=== PATIENT | male | born 1950 | race Caucasian/White ===

== ENCOUNTER 2020-11-06 10:16 | Outpatient (REF) | payer MEDICARE, SELFPAY ==
[2020-11-06 10:20] LABS: MANUAL DIFF FLAG NO
[2020-11-06 10:44] LABS: Basophils Absolute Auto 0.1 X10*3/uL (0.0-0.2); Eosinophils Absolute Auto 0.2 X10*3/uL (0.0-0.4); Eosinophils Percent Auto 2.2 % (0-4); Hematocrit 45.2 % (42-52); Imm Gran Abs Auto 0.04 X10*3/uL (0.00-0.03); Imm Gran Pct Auto 0.4 % (0.0-0.4); Lymphocytes Absolute Auto 2.3 X10*3/uL (1.2-4.9); Lymphocytes Percent Auto 21.6 % (20-40); Mean Corpuscular HGB Conc 33.2 g/dl (31.0-36.0); Mean Corpuscular Hemoglobin 30.4 pg (27.0-33.0); Mean Corpuscular Volume 91.7 fL (80-98); Mean Platelet Volume 10.8 fL (9.4-12.4); Monocytes Absolute Auto 0.7 X10*3/uL (0.1-1.2); Neutrophils Absolute Auto 7.1 X10*3/uL (2.0-8.3); Neutrophils Percent Auto 67.8 % (45-73); Platelet Count 261 X10*3/uL (160-400); Red Blood Count 4.93 X10*6/uL (4.60-5.80); Red Cell Distribution Width 13.8 % (11.0-16.0); White Blood Count 10.4 X10*3/uL (4.8-10.8)
[2020-11-06 11:03] LABS: Estimated Average Glucose 171 mg/dL; Hemoglobin A1c % 7.6 %
[2020-11-06 11:14] LABS: Alanine Aminotransferase 15 U/L (0-40); Albumin Level 4.5 g/dL (3.5-5.0); Alkaline Phosphatase 70 U/L (39-117); Anion Gap 15 (12-20); Aspartate Amino Transferase 14 U/L (5-37); Bilirubin Total 0.7 mg/dL (0.0-1.0); Blood Urea Nitrogen 14 mg/dL (9-16); Calcium 9.7 mg/dL (8.4-10.2); Carbon Dioxide 27 mmol/L (22-29); Chloride 105 mmol/L (96-108); Cholesterol 133 mg/dL; Estimated Glomerular Filt Rate > 60; Glucose Fasting 205 mg/dL (60-99); HDL Cholesterol 31 mg/dL; LDL Cholesterol Calculated 76 mg/dl; Potassium 4.5 mmol/L (3.3-5.1); Sodium 142 mmol/L (135-145); Total Protein 6.9 g/dL (6.5-8.0); Triglycerides 134 mg/dL
[2020-11-06 11:19] LABS: Glucose Urine UA NEG (NEG); Leukocyte Esterase Urine NEG (NEG); Nitrite Urine NEG (NEG); PH 5.5 (5.0-8.0); Specific Gravity - Urine >= 1.030 (1.005-1.025); Urine Blood NEG (NEG); Urine Ketones NEG (NEG); Urine Protein NEG (NEG-TRACE)
[2020-11-06 11:21] LABS: Appearance Urine CLEAR; Color Urine YELLOW
[2020-11-06 11:30] LABS: Reflex LDLD? No
[2020-11-06 11:36] LABS: PSA,Total (Free>4and<10) 0.78 ng/mL (0.00-4.00)
== END 2020-11-06 10:17 | disposition home or self-care (01) ==
LOC: HO.LNP 10:16
PROVIDERS: Visit Provider Internal Medicine
DX: Z00.00 Encounter for general adult medical examination without abnormal findings (principal); Z12.5 Encounter for screening for malignant neoplasm of prostate; E11.9 Type 2 diabetes mellitus without complications; E78.00 Pure hypercholesterolemia, unspecified
CPT/HCPCS: 80053; 80061; 81003; 82043; 83036; 84153; 85025

== ENCOUNTER 2021-05-09 10:22 | Outpatient (REF) | payer MEDICARE, SELFPAY ==
[2021-05-09 11:08] LABS: Estimated Average Glucose 163 mg/dL; Hemoglobin A1c % 7.3 %
[2021-05-09 11:10] LABS: Alanine Aminotransferase 22 U/L (0-40); Albumin Level 4.4 g/dL (3.5-5.0); Alkaline Phosphatase 69 U/L (39-117); Aspartate Amino Transferase 15 U/L (5-37); Bilirubin Direct 0.2 mg/dL (0.0-0.5); Bilirubin Total 0.5 mg/dL (0.0-1.0); Cholesterol 134 mg/dL; Glucose Fasting 177 mg/dL (60-99); HDL Cholesterol 30 mg/dL; LDL Cholesterol Calculated 80 mg/dl; Total Protein 6.8 g/dL (6.5-8.0); Triglycerides 120 mg/dL
[2021-05-09 12:58] LABS: Reflex LDLD? No
== END 2021-05-09 10:23 | disposition home or self-care (01) ==
LOC: HO.LNP 10:22
PROVIDERS: Visit Provider Internal Medicine
DX: E11.9 Type 2 diabetes mellitus without complications (principal); E78.00 Pure hypercholesterolemia, unspecified
CPT/HCPCS: 80061; 80076; 82947; 83036

== ENCOUNTER 2021-11-12 11:31 | Outpatient (REF) | payer MEDICARE, SELFPAY ==
[2021-11-12 11:36] LABS: MANUAL DIFF FLAG NO
[2021-11-12 12:12] LABS: Basophils Absolute Auto 0.1 X10*3/uL (0.0-0.2); Eosinophils Absolute Auto 0.2 X10*3/uL (0.0-0.4); Eosinophils Percent Auto 2.4 % (0-4); Hematocrit 44.7 % (42.0-52.0); Hemoglobin 14.9 g/dl (14.0-18.0); Imm Gran Abs Auto 0.04 X10*3/uL (0.00-0.03); Imm Gran Pct Auto 0.5 % (0.0-0.4); Lymphocytes Absolute Auto 1.7 X10*3/uL (1.2-4.9); Lymphocytes Percent Auto 19.3 % (20-40); Mean Corpuscular HGB Conc 33.3 g/dl (31.0-36.0); Mean Corpuscular Hemoglobin 30.2 pg (27.0-33.0); Mean Corpuscular Volume 90.5 fL (80.0-98.0); Mean Platelet Volume 11.2 fL (9.4-12.4); Monocytes Absolute Auto 0.5 X10*3/uL (0.1-1.2); Monocytes Percent Auto 6.1 % (2-11); Neutrophils Absolute Auto 6.2 x10*3/uL (2.0-8.3); Neutrophils Percent Auto 70.7 % (45-73); Platelet Count 273 X10*3/uL (160-400); Red Blood Count 4.94 X10*6/uL (4.60-5.80); Red Cell Distribution Width 13.6 % (11.0-16.0); White Blood Count 8.7 X10*3/uL (4.8-10.8)
[2021-11-12 12:17] LABS: Estimated Average Glucose 148 mg/dL; Hemoglobin A1c % 6.8 %
[2021-11-12 12:19] LABS: Alanine Aminotransferase 13 U/L (0-40); Albumin Level 4.5 g/dL (3.5-5.0); Alkaline Phosphatase 62 U/L (39-117); Anion Gap 15 (12-20); Aspartate Amino Transferase 16 U/L (5-37); Bilirubin Total 0.5 mg/dL (0.0-1.0); Blood Urea Nitrogen 11 mg/dL (9-16); Calcium 9.5 mg/dL (8.4-10.2); Carbon Dioxide 26 mmol/L (22-29); Chloride 104 mmol/L (96-108); Cholesterol 123 mg/dL; Estimated Glomerular Filt Rate > 60; Glucose Fasting 156 mg/dL (60-99); HDL Cholesterol 26 mg/dL; LDL Cholesterol Calculated 58 mg/dl; Sodium 140 mmol/L (135-145); Total Protein 6.7 g/dL (6.5-8.0); Triglycerides 198 mg/dL
[2021-11-12 12:20] LABS: Appearance Urine CLEAR; Color Urine YELLOW; Glucose Urine UA NEG (NEG); Leukocyte Esterase Urine NEG (NEG); Nitrite Urine NEG (NEG); PH 5.5 (5.0-8.0); Specific Gravity - Urine >= 1.030 (1.005-1.025); Urine Blood 3+ (NEG); Urine Ketones 15 MG/DL (NEG); Urine Protein TRACE MG/DL (NEG-TRACE)
[2021-11-12 12:33] LABS: Creatinine Urine 202.49 mg/dL; Microalbum/Creatinine Ratio Ur 61.2 ug/mg cr
[2021-11-12 12:41] LABS: PSA,Total (Free>4and<10) 0.69 ng/mL (0.00-4.00)
[2021-11-12 13:03] LABS: Squamous Epithelial Cell Urine 1+ /LPF
[2021-11-12 13:04] LABS: Mucus Urine TRACE /LPF; RBC Urine 50-75 /HPF (0)
== END 2021-11-12 11:32 | disposition home or self-care (01) ==
LOC: HO.LNP 11:31
PROVIDERS: Visit Provider Internal Medicine
DX: Z00.00 Encounter for general adult medical examination without abnormal findings (principal); E11.9 Type 2 diabetes mellitus without complications; R79.89 Other specified abnormal findings of blood chemistry; E78.00 Pure hypercholesterolemia, unspecified; Z12.5 Encounter for screening for malignant neoplasm of prostate
CPT/HCPCS: 80053; 80061; 81001; 82043; 83036; 84153; 85025

== ENCOUNTER 2023-02-24 10:59 | Outpatient (REF) | payer MEDICARE, SELFPAY ==
[2023-02-24 11:04] LABS: MANUAL DIFF FLAG NO
[2023-02-24 11:17] LABS: Appearance Urine Clear; Color Urine Yellow; Glucose Urine UA Negative (Negative); Leukocyte Esterase Urine Negative (Negative); Nitrite Urine Negative (Negative); UMIC TRIGGER UACC YES; Urine Blood Moderate (2+) (Negative); Urine Ketones Negative (Negative); Urine Protein 30 (1+) mg/dL (Neg-Trace)
[2023-02-24 11:18] LABS: Basophils Absolute Auto 0.1 X10*3/uL (0.0-0.2); Basophils Percent Auto 1.1 % (0-2); Eosinophils Absolute Auto 0.3 X10*3/uL (0.0-0.4); Eosinophils Percent Auto 2.7 % (0-4); Hematocrit 43.3 % (42.0-52.0); Hemoglobin 14.2 g/dl (14.0-18.0); Imm Gran Abs Auto 0.03 X10*3/uL (0.00-0.03); Imm Gran Pct Auto 0.3 % (0.0-0.4); Lymphocytes Percent Auto 19.7 % (20-40); Mean Corpuscular HGB Conc 32.8 g/dl (31.0-36.0); Mean Corpuscular Volume 88.5 fL (80.0-98.0); Mean Platelet Volume 11.3 fL (9.4-12.4); Monocytes Absolute Auto 0.7 X10*3/uL (0.1-1.2); Monocytes Percent Auto 6.3 % (2-11); Neutrophils Absolute Auto 7.2 x10*3/uL (2.0-8.3); Neutrophils Percent Auto 69.9 % (45-73); Platelet Count 241 X10*3/uL (160-400); Red Blood Count 4.89 X10*6/uL (4.60-5.80); Red Cell Distribution Width 13.8 % (11.0-16.0); White Blood Count 10.3 X10*3/uL (4.8-10.8)
[2023-02-24 11:24] LABS: Bacteria Urine None Seen (None Seen); RBC Urine >20 /HPF (0-2); UACC Culture Trigger YES
[2023-02-24 11:26] LABS: Estimated Average Glucose 143 mg/dL; Hemoglobin A1C 151.7007 umol/L; Hemoglobin A1c % 6.6 % (<6.0)
[2023-02-24 11:33] LABS: Alanine Aminotransferase 13 U/L (0-40); Albumin Level 4.5 g/dL (3.5-5.0); Alkaline Phosphatase 68 U/L (39-117); Anion Gap 15 (12-20); Aspartate Amino Transferase 15 U/L (5-37); Bilirubin Total 0.5 mg/dL (0.0-1.0); Blood Urea Nitrogen 11 mg/dL (9-16); Calcium 9.8 mg/dL (8.4-10.2); Carbon Dioxide 25 mmol/L (22-29); Chloride 107 mmol/L (96-108); Cholesterol 152 mg/dL (<200); Estimated Glomerular Filt Rate > 60; Glucose Fasting 160 mg/dL (60-99); HDL Cholesterol 31 mg/dL (>40); LDL Cholesterol Calculated 88 mg/dL (<100); Sodium 143 mmol/L (135-145); Triglycerides 168 mg/dL (<150)
[2023-02-24 12:43] LABS: Creatinine Urine 68.62 mg/dL; Microalbum/Creatinine Ratio Ur 224.4 ug/mg cr (<30)
== END 2023-02-24 11:00 | disposition home or self-care (01) ==
LOC: HO.LNP 10:59
PROVIDERS: Visit Provider Internal Medicine
DX: Z00.00 Encounter for general adult medical examination without abnormal findings (principal); E11.9 Type 2 diabetes mellitus without complications; R79.89 Other specified abnormal findings of blood chemistry; E78.00 Pure hypercholesterolemia, unspecified; R82.90 Unspecified abnormal findings in urine; Z12.5 Encounter for screening for malignant neoplasm of prostate
CPT/HCPCS: 80053; 80061; 81001; 82043; 82570; 83036; 84153; 85025; 87086

== ENCOUNTER 2023-05-28 12:02 | Inpatient (IN) | payer MEDICARE, SELFPAY ==
[2023-05-28] VITALS (7 sets, daily range): BP systolic 109–150; BP diastolic 62–76; PULSE 70–93; RESP 14–16; TEMP 36.7–37.6; O2SAT 97–99; BMI 27.0
--- NOTE | ~2023-05-28 | US_ITS ---
EXAMINATION: US RETROPERITONEAL LIMITED (RENAL ONLY) CLINICAL INFORMATION: Acute kidney injury. COMPARISON: CT dated 11/18/2018 TECHNIQUE: Real-time ultrasound was used to scan the bilateral kidneys and bladder. Permanent documented images obtained FINDINGS: RIGHT KIDNEY: 13.6 x 5.4 x 5.8 cm (SAG x AP x TRV) for a volume of 222.8 mL. Renal cortical thickness is normal. No calculi. 1.6 x 1.8 x 1.5 cm right lower pole cyst is seen. There is right hydronephrosis with complex appearing material within the intrarenal collecting system. Proximal right ureter at the level of the mid pole is enlarged, complex and thickened appearing measuring 4.1 x 4.2 x 4 cm. There is no internal vascularity. More distal right ureter is not documented. LEFT KIDNEY: 10.5 x 5.8 x 5.6 cm (SAG x AP x TRV) for a volume of 175.4 mm. The kidney is normal in size, shape and contour. Renal cortical thickness is normal. No renal calculi or focal parenchymal lesions. BLADDER: Limited evaluation. Urinary bladder is moderately distended with bilateral ureteral jets noted. OTHER: Prostate is enlarged and heterogeneous measuring 65 mL in volume. Prostate causes indentation on the inferior aspect of the urinary bladder. US/US renal BI IMPRESSION: Comparatively enlarged right kidney with complex appearing right hydronephrosis and proximal hydroureter. It is unclear whether complex material is related to blood products, infected material/pus or combination thereof. Proximal right ureteral mass not entirely excluded. Urgent CT urogram recommended. At the time of this dictation, PSA service contacted to inform referring physician of findings and recommendations.
--- NOTE | ~2023-05-28 | CT_ITS ---
EXAMINATION: CT HEAD W/O IV CONTRAST CT CERVICAL SPINE W/O IV CONTRAST CLINICAL INFORMATION: Pain after fall COMPARISON: None TECHNIQUE: Head - Contiguous axial imaging of the head was performed from the skull base to the vertex without the administration of intravenous contrast, and axial images are reconstructed at 0.6 mm, 2 mm and 5 mm slice thickness. Cervical spine - A volumetric, helical CT acquisition of the cervical spine was obtained without contrast; in addition to the standard set of axial images, multiplanar reformatted images were provided in the coronal and sagittal imaging planes. This CT examination was performed using dose optimization techniques as appropriate, variously including the following: *Automated exposure control *Adjustment of mA and/or kV according to patient size (this includes techniques or standardized protocols for targeted exams where dose is matched to indication/reason for exam; i.e. extremities or head) *Use of iterative reconstruction technique DLP: 1381 mGy-cm (total) FINDINGS: HEAD: No acute intracranial findings. Quiles to white matter differentiation is preserved. No evidence of intracranial hemorrhage, major vascular territory infarction, focal mass effect or midline shift. Chronic frbv-vy-zcqtmxkf parenchymal volume loss with commensurate prominence of ventricles and sulci. No hydrocephalus or extra-axial fluid collections. Atherosclerotic calcification of vertebral and cavernous carotid arteries. Patchy hypoattenuation within the supratentorial white matter is compatible with sequela of chronic moderate microangiopathy. Old small lacunar infarct in left basal ganglia. There is symmetric appearance of calcification of each globus pallidus. The calvarium is intact. Mild amount mucus of the inferior left maxillary sinus. Otherwise, the paranasal sinuses, mastoid air cells and middle ear cavities are clear. The temporomandibular joints are intact. The orbits and globes are unremarkable. CERVICAL SPINE: The craniocervical junction is normal. The occipital condyles, dens and atlantodental articulation are intact. The vertebral body heights are maintained. No fractures in the anterior or posterior elements. No prevertebral soft tissue edema or soft tissue hematoma. Multilevel facet arthropathy is present, worst on the right at C5-C6 and bilaterally at C7-T1. There is right-sided facet joint ankylosis at C2-C3. The degenerative disc space narrowing in the cervical spine is moderate in degree at C3-C4 and severe at C6-C7. Posterior disc-osteophyte complex at C6-C7 causes ulkm-fc-wttwipkq spinal canal stenosis. There is 0.2 cm of degenerative anterolisthesis at C5-C6 and C7-T1. No evidence of traumatic subluxation within the degenerated spine. The uncovertebral joint hypertrophy causes mild right and moderate left neural foraminal stenosis at C3-C4 and moderate bilateral foraminal stenosis at C6-C7. A small central disc protrusion is present at C4-C5. An old focus of nuchal ossification is noted at C6. Thyroid gland is unremarkable. There appear to be subpleural opacities of chronic scarring at the incompletely visualized lung apices. Also, centrilobular and paraseptal emphysematous changes are present at the apices. No pneumothorax. There is moderate atherosclerotic calcification of carotid bulbs. CT/CT cervical spine wo IV con IMPRESSION: * No intracranial hemorrhage or other acute intracranial pathology. 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 * No fracture or traumatic subluxation in the degenerated cervical spine. The degenerative disc disease is severe at C6-C7 and the posterior disc-osteophyte complex at this level causes hipi-ae-hyuujrlg spinal canal stenosis.
--- NOTE | ~2023-05-28 | CT_ITS ---
EXAMINATION: CT HEAD W/O IV CONTRAST CT CERVICAL SPINE W/O IV CONTRAST CLINICAL INFORMATION: Pain after fall COMPARISON: None TECHNIQUE: Head - Contiguous axial imaging of the head was performed from the skull base to the vertex without the administration of intravenous contrast, and axial images are reconstructed at 0.6 mm, 2 mm and 5 mm slice thickness. Cervical spine - A volumetric, helical CT acquisition of the cervical spine was obtained without contrast; in addition to the standard set of axial images, multiplanar reformatted images were provided in the coronal and sagittal imaging planes. This CT examination was performed using dose optimization techniques as appropriate, variously including the following: *Automated exposure control *Adjustment of mA and/or kV according to patient size (this includes techniques or standardized protocols for targeted exams where dose is matched to indication/reason for exam; i.e. extremities or head) *Use of iterative reconstruction technique DLP: 1381 mGy-cm (total) FINDINGS: HEAD: No acute intracranial findings. Quiles to white matter differentiation is preserved. No evidence of intracranial hemorrhage, major vascular territory infarction, focal mass effect or midline shift. Chronic [id number] parenchymal volume loss with commensurate prominence of ventricles and sulci. No hydrocephalus or extra-axial fluid collections. Atherosclerotic calcification of vertebral and cavernous carotid arteries. Patchy hypoattenuation within the supratentorial white matter is compatible with sequela of chronic moderate microangiopathy. Old small lacunar infarct in left basal ganglia. There is symmetric appearance of calcification of each globus pallidus. The calvarium is intact. Mild amount mucus of the inferior left maxillary sinus. Otherwise, the paranasal sinuses, mastoid air cells and middle ear cavities are clear. The temporomandibular joints are intact. The orbits and globes are unremarkable. CERVICAL SPINE: The craniocervical junction is normal. The occipital condyles, dens and atlantodental articulation are intact. The vertebral body heights are maintained. No fractures in the anterior or posterior elements. No prevertebral soft tissue edema or soft tissue hematoma. Multilevel facet arthropathy is present, worst on the right at C5-C6 and bilaterally at C7-T1. There is right-sided facet joint ankylosis at C2-C3. The degenerative disc space narrowing in the cervical spine is moderate in degree at C3-C4 and severe at C6-C7. Posterior disc-osteophyte complex at C6-C7 causes exdq-xh-anornanr spinal canal stenosis. There is 0.2 cm of degenerative anterolisthesis at C5-C6 and C7-T1. No evidence of traumatic subluxation within the degenerated spine. The uncovertebral joint hypertrophy causes mild right and moderate left neural foraminal stenosis at C3-C4 and moderate bilateral foraminal stenosis at C6-C7. A small central disc protrusion is present at C4-C5. An old focus of nuchal ossification is noted at C6. Thyroid gland is unremarkable. There appear to be subpleural opacities of chronic scarring at the incompletely visualized lung apices. Also, centrilobular and paraseptal emphysematous changes are present at the apices. No pneumothorax. There is moderate atherosclerotic calcification of carotid bulbs. CT/CT head/brain wo IV con IMPRESSION: * No intracranial hemorrhage or other acute intracranial pathology. 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 * No fracture or traumatic subluxation in the degenerated cervical spine. The degenerative disc disease is severe at C6-C7 and the posterior disc-osteophyte complex at this level causes stmo-yp-ucfollxx spinal canal stenosis.
--- NOTE | ~2023-05-28 | CT_ITS ---
EXAMINATION: CT ABDOMEN AND PELVIS WITHOUT AND WITH CONTRAST CLINICAL INFORMATION: Right hydronephrosis COMPARISON: Previous renal ultrasound from 05/29/[address] of the abdomen and pelvis November 2018 TECHNIQUE: Noncontrast CT of the abdomen and pelvis is performed followed by split bolus contrast-enhanced images using 85 mL Omnipaque 350 contrast.? Postcontrast imaging is performed during the combined nephrogram and excretion phase. Sagittal and coronal reformatted images were obtained on the technologist's workstation for both the precontrast and postcontrast phases. This CT examination was performed using dose optimization techniques as appropriate, variously including the following: *Automated exposure control *Adjustment of mA and/or kV according to patient size (this includes techniques or standardized protocols for targeted exams where dose is matched to indication/reason for exam; i.e. extremities or head) *Use of iterative reconstruction technique DLP: 767 mGy-cm FINDINGS: LUNG BASES: The visualized lung bases are unremarkable. LIVER, GALLBLADDER, AND BILIARY TREE: The liver is normal in size, shape, and attenuation. No focal hepatic lesion or biliary ductal dilatation is present. The gallbladder is unremarkable with no evidence of radiopaque gallstones, gallbladder wall thickening, or obvious pericholecystic inflammatory changes. PANCREAS: Unremarkable. SPLEEN: Unremarkable. ADRENAL GLANDS: Low-attenuation slightly prominent adrenal glands similar to previous scan. No focal adrenal nodule seen. KIDNEYS AND URETERS: The left kidney measures 10 cm and the right 11.6 cm in length. There is a delayed right nephrogram. There is mild right hydronephrosis and proximal. There is abnormal wall thickening of the central right renal collecting system involving the infundibuli, right renal pelvis and right proximal ureter. There is some excreted contrast seen in mildly dilated calyces in the right kidney, upper greater than lower pole. There is no excreted contrast seen in the right renal pelvis or ureter. 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 No renal mass. Bilateral 1 cm simple appearing renal cysts in the lower pole. No imaging follow-up recommended. Left kidney is normal. No left hydronephrosis, ureteral dilatation or filling defect seen. BLADDER: The prostate gland is enlarged and protrudes into the base of bladder. The bladder is otherwise normal. GASTROINTESTINAL TRACT: There is diverticulosis of the colon. The small and large bowel are otherwise unremarkable. The appendix is unremarkable. ABDOMINAL WALL: No significant hernia is appreciated. LYMPH NODES: Small retroperitoneal lymph nodes. No enlarged lymph nodes. No ascites. VASCULAR: Atherosclerotic disease. No aneurysm. PELVIC VISCERA: The prostate gland is enlarged measuring 4.6 x 6.2 cm AP and transverse dimension and protrudes into the base. OSSEUS STRUCTURES: Degenerative changes of the spine and mild scoliosis. CT/CT urogram IMPRESSION: Mild right hydronephrosis, proximal ureteral dilatation and delayed right nephrogram. There is abnormal wall thickening of the central right renal collecting system involving the infundibuli, right renal pelvis and right proximal ureter. 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 No excreted contrast in the right renal pelvis or ureter. Normal left kidney. Enlarged prostate gland that protrudes into the base of the bladder. Diverticulosis of the colon.
--- NOTE | 2023-05-28 13:07 | ED_ITS ---
HPI - Fall General Chief Complaint: Fall Stated Complaint: FALL T-1,HIT HEAD,-LOC,-THINN,DIFF AMB TODAY Time Seen by Provider: 05/28/23 13:06 Source: patient and old records reviewed Mode of arrival: EMS Limitations: no limitations History of Present Illness HPI Narrative: 73 yo male with PMH of chronic back pain, HLD, DM here with c/o fall yesterady after trying to get up and then abraded both knees and elbows. He did hit his head but denies LOC he is not on thinners. He lost balance trying to stand and felt weak. He notes his back does not hurt more than usual. He states he came today as he still feels weak getting up and when he told his son he was on the floor the majority of the day yesterday he wanted him to get checked out. He has no CP/SOB or GIB symptoms MD complaint: fall Onset (ago): day(s) (yesterday AM) Fall from: standing Fall witnessed: no Place fall occurred: home Loss of consciousness: none Prolonged down time: hour(s) Symptoms prior to fall: lightheadedness Location of injury: head Location of injury - extremities: right: elbow and knee Severity: mild Associated symptoms (after fall): lightheaded Related Data Allergies Allergy/AdvReac Type Severity Reaction Status Date / Time atorvastatin [Lipitor] Allergy Unknown Unknown Verified 05/28/23 12:25 No Known Allergies Allergy Unverified 01/19/20 15:33 Review of Systems 2 Review of Systems: Constitutional : No Fever, No Chills, No Fatigue ENT/Mouth : No sore throat, No Rhinorrhea Eyes: No Eye Pain, No Swelling, No Redness Cardiovascular : No Chest Pain, No SOB, No Dyspnea on Exertion Respiratory : No Cough, No Sputum Gastrointestinal : No Nausea, No Vomiting, No Diarrhea, No abdominal Pain Genitourinary : No Dysuria, No Urinary Frequency, No Hematuria, Musculoskeletal : No joint pain, No Myalgias, No Joint Swelling Skin : No Skin Lesions, No rash. pos abrasion Neuro : No Weakness, No Numbness, pos Dizziness, no Headache Psych : No Anxiety/Panic, No Depression All other systems reviewed and are negative [facility] Past Medical History Attestation statement: The following information was validated with the patient. Source: old records reviewed Medical History Hyperlipidemia Diabetes Social History Social History (Updated 05/28/23 @ 13:42 by Kandace Ta DO) Patient Tobacco Use Status: Current everyday Tobacco user Smoked in Last 30 Days: Yes Use of substances other than those prescribed or required for medical reasons: No Advance Directives: No Advance Directives Information Provided: Yes Physical Exam 2 Vital Signs: Vital Signs: Last Vital Signs Temp 98.0 F 05/28/23 14:45 Pulse 70 05/28/23 14:45 Resp 16 05/28/23 14:45 BP 134/65 05/28/23 14:45 Pulse Ox 99 05/28/23 14:45 O2 Del Method Room Air 05/28/23 14:45 BMI result Body Mass Index 27.0 Appearance: Alert. Oriented X3. No acute distress. Eyes: Pupils equal, round and reactive to light. ENT: Pharynx normal. atraumatic Neck: Normal inspection. Neck supple. CVS: Normal heart rate and rhythm. Pulses normal. Respiratory: No respiratory distress. Breath sounds normal. Abdomen: Soft and nontender. Skin: Skin warm and dry. Normal skin color. Normal skin turgor. Extremities: No lower extremity edema. superficial abrasions to both knees and elbows but normal and full ROM Neuro: Oriented X 3. No motor deficit. No sensory deficit. Course Course Course Narrative: COVID - 19 + only first 2 vaccines Medical Decision Making Medical Decision Making [facility] Narrative: 73 yo male with PMH of HTN, HLD here with c/o feeling dizzy when standing yesterday and then falling spending the majority of the day on the floor - he denies GIB symptoms, CP/SOB. He did hit head. At this time will need CT head/cspine. CXR and UA to rule out any infectious causes as well as EKG and ortho VS. Basic labs ordered. He has no CP/SOB to suggest VTE or ACS. He denies GIB symptoms Differential Diagnosis Differential Diagnoses: The differential diagnosis associated with the presentation includes rhabdo, weakness, dehydration, anemia, head trauma, FTT Admission/Observation Consideration of admission/observation: Escalation of care including admission/observation considered will admit for hydration, TASH, rhabdo Consult Healthcare Provider Management of the patient was discussed with: Hospitalist (will admit) Lab Data [facility] Lab Attestation statement: I reviewed the patient's lab results. 05/28/23 14:33 05/28/23 14:33 Labs: Lab Results 05/28/23 Range/Units 14:33 WBC 6.9 (4.8-10.8) X10*3/uL RBC 4.86 (4.60-5.80) X10*6/uL Hgb 14.4 (14.0-18.0) g/dl Hct 43.2 (42.0-52.0) % MCV 88.9 (80.0-98.0) fL MCH 29.6 (27.0-33.0) pg MCHC 33.3 (31.0-36.0) g/dl RDW 13.6 (11.0-16.0) % Plt Count 170 D (160-400) X10*3/uL MPV 10.3 (9.4-12.4) fL Immature Gran % (Auto) 0.4 (0.0-0.4) % Neut % (Auto) 68.9 (45-73) % Lymph % (Auto) 16.2 L (20-40) % Geary % (Auto) 13.2 H (2-11) % Eos % (Auto) 0.3 (0-4) % Baso % (Auto) 1.0 (0-2) % Lymph # (Auto) 1.1 L (1.2-4.9) X10*3/uL Geary # (Auto) 0.9 (0.1-1.2) X10*3/uL Eos # (Auto) 0.0 (0.0-0.4) X10*3/uL Baso # (Auto) 0.1 (0.0-0.2) X10*3/uL Abs Immat Gran (auto) 0.03 (0.00-0.03) X10*3/uL Absolute Neuts (auto) 4.8 (2.0-8.3) x10*3/uL Absolute Nucleated RBC 0.000 (0.0-0.012) X10*3/uL Nucleated RBC % (auto) 0.0 (0.0-0.2) /100WBC Sodium 138 (135-145) mmol/L Potassium 4.0 (3.3-5.1) mmol/L Chloride 108 (96-108) mmol/L Carbon Dioxide 20 L (22-29) mmol/L Anion Gap 14 (12-20) BUN 22 H (9-16) mg/dL Creatinine 1.53 H (0.5-1.4) mg/dL Estim Creat Clear Calc 45.7 Estimated GFR 45 Random Glucose 121 H (60-115) mg/dL Calcium 9.5 (8.4-10.2) mg/dL Magnesium 2.1 (1.6-2.6) mg/dL Total Bilirubin 0.4 (0.0-1.0) mg/dL Direct Bilirubin 0.1 (0.0-0.5) mg/dL AST 60 H (5-37) U/L ALT 26 (0-40) U/L Alkaline Phosphatase 67 (39-117) U/L Total Creatine Kinase 2463 H (38-174) U/L Total Protein 6.9 (6.5-8.0) g/dL Albumin 4.2 (3.5-5.0) g/dL Lipase 34 (8-78) U/L COVID-19 (VINICIUS) Positive A (Negative) COVID-19 Clin Com See Note Independent Interpretation I performed an independent interpretation of an: EKG and CT Scan Radiology Impression Discussion of test interpretation with radiology: I have reviewed the radiologist's reading. Independent Historian Clinical information obtained from an independent historian. History obtained from or confirmed by: EMS External Record Review External record reviewed: Outpatient record Discharge Plan Discharge Clinical Impression: TASH (acute kidney injury), COVID-19 Rhabdomyolysis Qualifiers: Rhabdomyolysis type: non-traumatic Qualified Code(s): M62.82 - Rhabdomyolysis Patient Disposition: Admitted As Inpatient
--- NOTE | 2023-05-28 13:14 | PC.NURSE ---
Pt is a&ox4 coming in after having a fall. +headstrike, -LOC. Pt denies pain at this time denies being dizzy prior to fall. pt able to follow commands. denies any sx at this time.
--- NOTE | 2023-05-28 13:17 | ECG_ITS ---
Test Reason : FALL Blood Pressure : / mmHG Vent. Rate : 074 BPM Atrial Rate : 074 BPM P-R Int : 120 ms QRS Dur : 080 ms QT Int : 372 ms P-R-T Axes : -31 -54 049 degrees QTc Int : 412 ms Normal sinus rhythm Left axis deviation Inferior infarct , age undetermined Abnormal ECG When compared with ECG of 13-MAR-2013 20:59, Inferior infarct is now Present Referred By: Kandace Ta Electronically Signed By:Aidan Fields
[2023-05-28 14:40] LABS: MANUAL DIFF FLAG NO
[2023-05-28 14:44] LABS: Basophils Absolute Auto 0.1 X10*3/uL (0.0-0.2); Eosinophils Percent Auto 0.3 % (0-4); Hematocrit 43.2 % (42.0-52.0); Hemoglobin 14.4 g/dl (14.0-18.0); Imm Gran Abs Auto 0.03 X10*3/uL (0.00-0.03); Imm Gran Pct Auto 0.4 % (0.0-0.4); Lymphocytes Absolute Auto 1.1 X10*3/uL (1.2-4.9); Lymphocytes Percent Auto 16.2 % (20-40); Mean Corpuscular HGB Conc 33.3 g/dl (31.0-36.0); Mean Corpuscular Hemoglobin 29.6 pg (27.0-33.0); Mean Corpuscular Volume 88.9 fL (80.0-98.0); Mean Platelet Volume 10.3 fL (9.4-12.4); Monocytes Absolute Auto 0.9 X10*3/uL (0.1-1.2); Monocytes Percent Auto 13.2 % (2-11); Neutrophils Absolute Auto 4.8 x10*3/uL (2.0-8.3); Neutrophils Percent Auto 68.9 % (45-73); Platelet Count 170 X10*3/uL (160-400); Red Blood Count 4.86 X10*6/uL (4.60-5.80); Red Cell Distribution Width 13.6 % (11.0-16.0); White Blood Count 6.9 X10*3/uL (4.8-10.8)
[2023-05-28 14:59] LABS: Alanine Aminotransferase 26 U/L (0-40); Albumin Level 4.2 g/dL (3.5-5.0); Alkaline Phosphatase 67 U/L (39-117); Anion Gap 14 (12-20); Aspartate Amino Transferase 60 U/L (5-37); Bilirubin Direct 0.1 mg/dL (0.0-0.5); Bilirubin Total 0.4 mg/dL (0.0-1.0); Blood Urea Nitrogen 22 mg/dL (9-16); Calcium 9.5 mg/dL (8.4-10.2); Carbon Dioxide 20 mmol/L (22-29); Chloride 108 mmol/L (96-108); Creatinine Clr Calc Pharmacy 45.7; Estimated Glomerular Filt Rate 45; Glucose Random 121 mg/dL (60-115); Lipase 34 U/L (8-78); Magnesium 2.1 mg/dL (1.6-2.6); Sodium 138 mmol/L (135-145); Total Protein 6.9 g/dL (6.5-8.0)
[2023-05-28 15:00] LABS: COVID-19 Test Positive (Negative); IDNOW Serial# 9DB6401D
[2023-05-28 15:06] LABS: Troponin-I High Sensitivity 30.8 ng/L (<3.5-35.0)
--- NOTE | 2023-05-28 15:26 | P.HPHOSP_ITS ---
History of Present Illness Date of Service: 05/28/23 Attending physician on admission: Timothy Roach Chief Complaint: Fall at home, generalized weakness Pt is a 73-year-old male with a PMH significant for HLD, non-insulin dependent diabetes type 2, and chronic lower back pain who presents to the ED for evaluation after fall at home with a prolonged down time yesterday. Pt lives by himself with some support from family. Son is at beside who supplements HPI. Pt is alert and oriented x4 and answering appropriately, but lacks some details about his fall. Apparently patient was alone for much of the day yesterday, and found by family when they brought over dinner. Patient likely fell sometime during the morning and is estimated to have been the floor for at least 6-7 hours. Patient's phone was not within reach and he lactose strength to get up or even pull himself into a sitting position. Patient remembers the incident and denies lightheadedness or dizziness, tripping over anything, or loss of consciousness, but is unsure of exactly when he fell. Patient reports a long history of chronic lower back pain and said that his legs felt weak. 911 and the EMT was called to evaluate patient, who declined to come in to the ED at that time for evaluation. Pt apparently fell again a second time later that night and son was worried about delayed response to questions, so pt was brought in to the ED this morning for further evaluation. The patient himself complains of chronic lower back pain, around baseline. Denies pain anywhere else. No musculoskeletal or joint pain. Denies headache or acute vision changes. Denies chest pain/pressure, palpitations. Pt a lifelong smoker of around a pack a day, though no shortness of breath or cough. Denies fever or chills. Son notes pt has had noticeable physical decline over the past couple of months. In the ED pt was afebrile but slightly hypertensive up to 145/64. Vitals otherwise stable, WNL. Labs were significant for testing positive for COVID, creatinine 1.53, AST 60, and CPK 2463. No electrolyte abnormalities. No leukocytosis. Stable H&H. CT?of head showed no intracranial hemorrhage or other acute intracranial pathology, but did show patchy hypoattenuation suggestive of microangiopathy. CT of cervical spine found no acute fracture or traumatic subluxations, though did find chronic degenerative disc disease, severe at C6 through C7 with mild to moderate spinal canal stenosis. EKG demonstrated unusual P axis with possible ectopic atrial rhythm with no evidence of ST elevations or depressions. Pt was treated with IVF. Pt will be admitted to the hospital for treatment further evaluation of rhabdomyolysis, TASH, and generalized weakness in the setting of COVID infection. Review of Systems 2 Review of Systems: Fall at home Generalized weakness Denies lightheadedness or dizziness No increased shortness of breath or cough Denies chest pain/pressure, palpitations No fever, chills, nausea, vomiting, abdominal pain PMFSH Medical History Hyperlipidemia Diabetes Social History Patient Tobacco Use Status: Current everyday Tobacco user Smoked in Last 30 Days: Yes Use of substances other than those prescribed or required for medical reasons: No Advance Directives: No Advance Directives Information Provided: Yes Meds Allergies Allergy/AdvReac Type Severity Reaction Status Date / Time atorvastatin [Lipitor] Allergy Unknown Unknown Verified 05/28/23 12:25 No Known Allergies Allergy Unverified 01/19/20 15:33 Active Medications: Current Medications Sodium Chloride (Ns) 1,000 mls @ 125 mls/hr IVCONT .Q8H SAMI Home Medications Medication Instructions Recorded Confirmed Last Taken Type metformin 500 mg tablet 1,000 mg PO BID 05/28/23 05/28/23 05/28/23 History simvastatin 40 mg tablet 40 mg PO BEDTIME 05/28/23 05/28/23 05/28/23 History Physical Exam 2 Vital Signs and Narrative: Vital Signs: Last Vital Signs Temp 98.0 F 05/28/23 14:45 Pulse 70 05/28/23 14:45 Resp 16 05/28/23 14:45 BP 134/65 05/28/23 14:45 Pulse Ox 99 05/28/23 14:45 O2 Del Method Room Air 05/28/23 14:45 BMI result Body Mass Index 27.0 Constitutional: Alert, in no acute distress. Mental Status: Oriented to person, place and time. Eyes: Pupils are equal, round, and reactive to light. Ear, Nose, and Throat: Oropharynx clear, mucous membranes moist. Ears and nose without deformities. Trachea midline. Respiratory: Clear to auscultation bilaterally. No wheezing, rales, or rhonchi. Cardiovascular: S1, S2 regular. No murmurs, rubs, or gallops. Gastrointestinal: Abdomen soft, non-tender, non-distended. Normal bowel sounds. Neurologic: Cranial nerves II-XII are grossly intact bilaterally. No focal neurological deficits. Moves all extremities spontaneously. Bilateral 4/5 strength of lower extremities. Skin: Warm, dry. Superficial abrasions on elbows. Musculoskeletal: No cyanosis or clubbing. Extremities: No edema. Psychiatric: Normal mood and affect. Results Labs 05/28/23 14:33 05/28/23 14:33 Labs: Laboratory Results - last 24 hr 05/28/23 14:33 MCV 88.9 MCH 29.6 MCHC 33.3 RDW 13.6 Plt Count 170 D MPV 10.3 Immature Gran % (Auto) 0.4 Neut % (Auto) 68.9 Lymph % (Auto) 16.2 L Chaves % (Auto) 13.2 H Eos % (Auto) 0.3 Baso % (Auto) 1.0 Lymph # (Auto) 1.1 L Chaves # (Auto) 0.9 Eos # (Auto) 0.0 Baso # (Auto) 0.1 Abs Immat Gran (auto) 0.03 Absolute Neuts (auto) 4.8 Absolute Nucleated RBC 0.000 Nucleated RBC % (auto) 0.0 Anion Gap 14 Estim Creat Clear Calc 45.7 Estimated GFR 45 Random Glucose 121 H Calcium 9.5 Magnesium 2.1 Total Bilirubin 0.4 Direct Bilirubin 0.1 AST 60 H ALT 26 Alkaline Phosphatase 67 Total Creatine Kinase 2463 H Total Protein 6.9 Albumin 4.2 Lipase 34 COVID-19 (VINICIUS) Positive A COVID-19 Clin Com See Note Imaging Radiologist's Impressions: Impressions Cervical Spine CT 05/28/23 13:38 IMPRESSION: * No intracranial hemorrhage or other acute intracranial pathology. 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 * No fracture or traumatic subluxation in the degenerated cervical spine. The degenerative disc disease is severe at C6-C7 and the posterior disc-osteophyte complex at this level causes xmnm-bw-kiqdygie spinal canal stenosis. Head CT 05/28/23 13:38 IMPRESSION: * No intracranial hemorrhage or other acute intracranial pathology. 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 * No fracture or traumatic subluxation in the degenerated cervical spine. The degenerative disc disease is severe at C6-C7 and the posterior disc-osteophyte complex at this level causes xumn-lh-mndgwqwa spinal canal stenosis. Assessment and Plan (1) Rhabdomyolysis: Qualifiers: Rhabdomyolysis type: non-traumatic Qualified Code(s): M62.82 - Rhabdomyolysis Status: Acute (2) COVID-19: Status: Acute (3) TASH (acute kidney injury): Status: Acute Plan Pt is a 73-year-old male with a PMH significant for HLD, non-insulin dependent diabetes type 2, and chronic lower back pain who presents to the ED for evaluation after fall at home with a prolonged down time yesterday. Pt was treated with IVF. Pt will be admitted to the hospital for treatment further evaluation of rhabdomyolysis, TASH, and generalized weakness in the setting of COVID infection. Rhabdomyolysis CPK 2463 Pt with fall at home with down time of at least 6-7 hours Likely secondary to generalized weakness in the setting of COVID infection Pt treated with IVF in ED Will place on maintenance fluids Follow CPK PT consult TASH Creatinine 1.53 at time of presentation Likely secondary to rhabdo, dehydration Pt treated with IVF in ED Will place on maintenance fluids Folllow BMP COVID infection Pt largely asymptomatic, not hypoxic, in no respiratory distress Will treat symptomatically Non insulin dependent diabetes type [address] on sliding scale insulin Diabetic diet HLD Will hold simvastatin for now d/t rhabdo Pt with reported allergy to atorvastatin Full Code Attending:?Dr. Roach DVT Prophylaxis: Heparin Pt will require a hospitalization of at least two nights for treatment of?rhabdomyolysis, TASH, and generalized weakness in the setting of COVID infection. Patient will require hospitalized care for treatment with IVF, close monitoring of labs, and PT evaluation safe disposition home. Quality Stroke Does the patient have a stroke diagnosis?: No VTE Prior VTE?: No VTE Risk Level:: Medical - moderate - high VTE Device Contraindication: Treatment Not Indicated VTE Drug Contraindication: N/A - Med Ordered
[2023-05-28] MEDS: 0.9 % Sodium Chloride 1,000 ML 125 ML IVCONT (15:28)
--- NOTE | 2023-05-28 15:40 | ECG_ITS ---
Test Reason : WEAKNESS Blood Pressure : / mmHG Vent. Rate : 077 BPM Atrial Rate : 077 BPM P-R Int : 160 ms QRS Dur : 076 ms QT Int : 380 ms P-R-T Axes : 041 -49 049 degrees QTc Int : 430 ms Normal sinus rhythm Left axis deviation Low voltage QRS Inferior infarct (cited on or before 28-MAY-2023) Abnormal ECG When compared with ECG of 28-MAY-2023 13:46, Sinus rhythm has replaced Ectopic atrial rhythm Referred By: Kandace Ta Electronically Signed By:Aidan Fields
--- NOTE | 2023-05-28 16:22 | PHA.MEDREC ---
Pharmacy Consult ? Medication Reconciliation Pharmacy has completed the medication reconciliation. Patient confirmed medications. Radha Peguero CPhT
--- NOTE | 2023-05-28 16:47 | MHC.EDTECH ---
This pct attempted to do orthostatic vitals on patient but can only record supine and sitting vitals, patients states he is unable to stand and when attempted to stand is shaky and unsteady. RN Aware
[2023-05-28] MEDS: Heparin Sodium,Porcine 5,000 UNIT/ML VIAL 5000 UNIT SUBCUT (17:29)
[2023-05-28 19:48] LABS: Glucose, Whole Blood 107 mg/dL (60-115)
[2023-05-28 19:50] LABS: Appearance Urine Hazy; Color Urine Yellow; Glucose Urine UA Negative (Negative); Leukocyte Esterase Urine Negative (Negative); Nitrite Urine Negative (Negative); PH 5.5 (5.0-9.0); Specific Gravity - Urine >= 1.030 (1.005-1.025); UMIC TRIGGER UACC YES; Urine Blood Trace (Negative); Urine Ketones Negative (Negative); Urine Protein 100 (2+) mg/dL (Neg-Trace)
[2023-05-28 20:01] LABS: Bacteria Urine 3+ (None Seen); WBC Urine 0-5 /HPF (0-5)
[2023-05-29] VITALS (10 sets, daily range): BP systolic 127–151; BP diastolic 62–69; PULSE 69–86; RESP 16–24; TEMP 36.6–38.4; O2SAT 92–97; BMI 26.9
[2023-05-29] MEDS: 0.9 % Sodium Chloride 1,000 ML 125 ML IVCONT (00:25)
[2023-05-29] MEDS: Heparin Sodium,Porcine 5,000 UNIT/ML VIAL 5000 UNIT SUBCUT ×2 (00:28→10:02)
[2023-05-29] MEDS: Acetaminophen 325 MG TABLET 650 MG PO ×2 (00:33→15:20)
[2023-05-29 07:07] LABS: Anion Gap 14 (12-20); Blood Urea Nitrogen 20 mg/dL (9-16); Calcium 8.4 mg/dL (8.4-10.2); Carbon Dioxide 19 mmol/L (22-29); Chloride 111 mmol/L (96-108); Creatinine Clr Calc Pharmacy 45.7; Estimated Glomerular Filt Rate 45; Glucose Random 119 mg/dL (60-115); Potassium 3.9 mmol/L (3.3-5.1); Sodium 140 mmol/L (135-145)
[2023-05-29 07:24] LABS: Glucose, Whole Blood 130 mg/dL (60-115)
[2023-05-29] MEDS: 0.9 % Sodium Chloride 1,000 ML 100 ML IVCONT (10:03)
--- NOTE | 2023-05-29 10:03 | PC.NURSE ---
medication/IVF administered per provider order.
--- NOTE | 2023-05-29 10:26 | MHC.CM.PN ---
IMM DELIVERED CM MET WITH PT AT BEDSIDE. PT STATES HE LIVES WITH SON. PT INDEPENDENT, NO SERVICES PRIOR. NO HCP ON FILE BUT PT BELIEVES HE HAS ONE AT HOME. PT GIVES THIS CM PERMISSION TO SPEAK WITH SON EBENEZER (. PCP DR. CONNER WEINBERG DP: HOME, PT OPEN TO REHAB/ HOME SERVICES IF RECOMMENDED.[facility] WILL TRANSPORT. CM WILL CONTINUE TO FOLLOW FOR ANY CHANGE IN DC PLAN/NEEDS.
--- NOTE | 2023-05-29 11:00 | PC.NURSE ---
vss and up to date at this time. nsr on the vehicle monitor technician. pt continues to rest comfortably in no apparent distress. respirations remain even and unlabored. call johnson placed within reach.
--- NOTE | 2023-05-29 11:40 | PC.NURSE ---
pt bladder scanned by [facility] displaying 445ml PVR - admitting provider notified/aware.
--- NOTE | 2023-05-29 12:30 | PC.NURSE ---
ultrasound bedside at this time.
[2023-05-29 13:23] LABS: Glucose, Whole Blood 162 mg/dL (60-115)
--- NOTE | 2023-05-29 13:23 | P.PNIM_ITS ---
Subjective Subjective Date of Service: 05/29/23 Interval History: tash,rhabdomylysis Review of Systems generalized weak denies any sob or chest pain no fever Physical Exam 2 Vital Signs: Vital Signs: Last Vital Signs Temp 99.8 F 05/29/23 10:59 Pulse 84 05/29/23 10:59 Resp 16 05/29/23 10:59 BP 143/64 H 05/29/23 10:59 Pulse Ox 92 05/29/23 10:59 O2 Del Method Room Air 05/29/23 10:59 BMI result Body Mass Index 27.0 Appearance: Alert.? Oriented X2 , feels comfortable .? generalised weak. cvs: rrr, [id number] . res: clear to auscultation ,no rhonchii or wheezing abd: no rebound or guarding ,nt, bs present. ext pulses present , no cyanosis . neuro: moves all ext Objective Data Active Medications Acetaminophen (Acetaminophen 325 Mg Tablet) 650 mg PO Q6H PRN PRN Reason: Pain, Mild (Pain Scale 1-3) Last Admin: 05/29/23 00:33 Dose: 650 mg Documented By: KRISTINA Benzonatate (Benzonatate 100 Mg Capsule) 100 mg PO TID PRN PRN Reason: Cough Dextrose (Dextrose 50 % 25 Gm/50 Ml Syringe) 25 gm IVPUSH Q15M PRN; Protocol PRN Reason: per Hypoglycemia Standing Ord. Docusate Sodium (Docusate Sodium 100 Mg Capsule) 100 mg PO DAILY PRN PRN Reason: Constipation Glucose (Glucose Gel 15 Gm Gel..Gram.) 15 gm PO Q15M PRN; Protocol PRN Reason: per Hypoglycemia Standing Ord. Heparin Sodium (Porcine) (Heparin Sodium,Porcine 5,000 Unit/Ml Vial) 5,000 unit SUBCUT Q8H [facility] Last Admin: 05/29/23 10:02 Dose: 5,000 unit Documented By: ARNOLDO Sodium Chloride (Ns) 1,000 mls @ 100 mls/hr IVCONT .Q10H [facility] Last Admin: 05/29/23 10:03 Dose: 100 mls/hr Documented By: ARNOLDO Insulin Human Lispro (Insulin Lispro 100 Unit/Ml 3 Ml Vial) 0 unit SUBCUT QIDACHS [facility]; Protocol Last Admin: 05/29/23 07:27 Dose: Not Given Documented By: ARNOLDO Non-Admin Reason: No Insulin Coverage Melatonin (Melatonin 3 Mg Tablet) 6 mg PO BEDTIME PRN PRN Reason: Insomnia Ondansetron HCl (Ondansetron Hcl 4 Mg/2 Ml Vial) 4 mg IVPUSH Q8H PRN PRN Reason: Nausea and Vomiting Sodium Chloride (0.9 % Sodium Chloride Flush 3 Ml Syringe) 3 ml IVFLUSH QSHIFT [facility] Last Admin: 05/29/23 08:54 Dose: Not Given Documented By: ARNOLDO Non-Admin Reason: Patient Asleep Labs 05/28/23 14:33 05/29/23 06:10 Labs: Laboratory Results - last 24 hr 05/28/23 05/28/23 05/28/23 14:33 19:34 19:43 MCV 88.9 MCH 29.6 MCHC 33.3 RDW 13.6 Plt Count 170 D MPV 10.3 Immature Gran % (Auto) 0.4 Neut % (Auto) 68.9 Lymph % (Auto) 16.2 L Reynolds % (Auto) 13.2 H Eos % (Auto) 0.3 Baso % (Auto) 1.0 Lymph # (Auto) 1.1 L Reynolds # (Auto) 0.9 Eos # (Auto) 0.0 Baso # (Auto) 0.1 Abs Immat Gran (auto) 0.03 Absolute Neuts (auto) 4.8 Absolute Nucleated RBC 0.000 Nucleated RBC % (auto) 0.0 Hold Purple Top Anion Gap 14 Estim Creat Clear Calc 45.7 Estimated GFR 45 POC Glucose 107 Random Glucose 121 H Calcium 9.5 Magnesium 2.1 Total Bilirubin 0.4 Direct Bilirubin 0.1 AST 60 H ALT 26 Alkaline Phosphatase 67 Total Creatine Kinase 2463 H Total Protein 6.9 Albumin 4.2 Lipase 34 Urine Color Yellow Urine Appearance Hazy Urine pH 5.5 Ur Specific [place] >= 1.030 H Urine Protein 100 (2+) H Urine Glucose (UA) Negative Urine Ketones Negative Urine Blood Trace Urine Nitrite Negative Ur Leukocyte Esterase Negative Urine RBC 6-10 H Urine WBC 0-5 Ur Squamous Epith Cells 11-20 Urine Bacteria 3+ Hyaline Casts 3-5 COVID-19 (VINICIUS) Positive A COVID-19 Clin Com See Note 05/29/23 05/29/23 05/29/23 06:10 07:21 13:19 MCV MCH MCHC RDW Plt Count MPV Immature Gran % (Auto) Neut % (Auto) Lymph % (Auto) Reynolds % (Auto) Eos % (Auto) Baso % (Auto) Lymph # (Auto) Reynolds # (Auto) Eos # (Auto) Baso # (Auto) Abs Immat Gran (auto) Absolute Neuts (auto) Absolute Nucleated RBC Nucleated RBC % (auto) Hold Purple Top SEE NOTE Anion Gap 14 Estim Creat Clear Calc 45.7 Estimated GFR 45 POC Glucose 130 H 162 H Random Glucose 119 H Calcium 8.4 D Magnesium Total Bilirubin Direct Bilirubin AST ALT Alkaline Phosphatase Total Creatine Kinase 1547 H Total Protein Albumin Lipase Urine Color Urine Appearance Urine pH Ur Specific [place] Urine Protein Urine Glucose (UA) Urine Ketones Urine Blood Urine Nitrite Ur Leukocyte Esterase Urine RBC Urine WBC Ur Squamous Epith Cells Urine Bacteria Hyaline Casts COVID-19 (VINICIUS) COVID-19 Clin Com Assessment and Plan (1) Rhabdomyolysis: Status: Acute (2) COVID-19: Status: Acute (3) TASH (acute kidney injury): Status: Acute Plan 73-year-old male with a PMH significant for HLD, non-insulin dependent diabetes type 2, and chronic lower back pain who presents to the ED for evaluation after fall at home with a prolonged down time yesterday. Pt was treated with IVF. Pt will be admitted to the hospital for treatment further evaluation of rhabdomyolysis, TASH, and generalized weakness in the setting of COVID infection. Rhabdomyolysis,s/p fall( Likely secondary to generalized weakness in the setting of COVID infection) CPK [id number] continue ivf ,encouraged for sri inatke/hydration TASH-Likely secondary to rhabdo, dehydration,also ?urinary retetion Creatinine 1.53 at time of presentation continue IVF,flomax ,moniter pvr,Folllow BMP COVID infection Pt largely asymptomatic, not hypoxic, in no respiratory distress Non insulin dependent diabetes type 2 Hold metformin fs with sliding scale insulin Diabetic diet HLD hold simvastatin for now d/t rhabdo Pt with reported allergy to atorvastatin Generalised weakness: add Pt eval. Full Code DVT Prophylaxis: Heparin ongoing hospitalization need : treatment of?rhabdomyolysis, TASH,urinary retention and generalized weakness in the setting of COVID infection- need treatment with IVF, close monitoring of labs-renal function/electrolytes ,cpk , and PT evaluation safe . Quality Stroke Does the patient have a stroke diagnosis?: No VTE Prior VTE?: No VTE Risk Level:: Medical - moderate - high VTE Device Contraindication: Treatment Not Indicated VTE Drug Contraindication: N/A - Med Ordered
[2023-05-29] MEDS: Insulin Lispro 100 UNIT/ML 3 ML VIAL SUBCUT ×3 (13:37→21:05)
--- NOTE | 2023-05-29 13:38 | PC.NURSE ---
insulin administered per sliding scale. pt sitting upright/repositioned to comfort eating lunch w/ family bedside. respirations remain even and unlabored. call johnson placed within reach.
--- NOTE | 2023-05-29 13:41 | PC.NURSE ---
pt transitioned to RA at this time. resting comfortably at 90%. no sob/wob noted. respirations remain even and unlabored. family bedside. call johnson placed within reach.
[2023-05-29] MEDS: Tamsulosin HCL 0.4 MG CAPSULE PO (14:30)
--- NOTE | 2023-05-29 15:32 | PC.NURSE ---
straight catheterization performed. 100ml of dark yellow urine noted immediately post output. PVR bladder scan obtained displaying 0ml. pt extremely warm to touch during straight catheterization - rectal temp obtained displaying 101.1. prn tylenol administered per provider order. will reassess rectal temp shortly. respirations remain even and unlabored. call johnson placed within reach.
[2023-05-29] MEDS: 0.9 % Sodium Chloride Flush 3 ML SYRINGE IVFLUSH ×2 (16:16→21:06)
[2023-05-29 16:19] LABS: Glucose, Whole Blood 176 mg/dL (60-115)
[2023-05-29] MEDS: cefTRIAXone sodium 1 GM in 0.9 % Sodium Chloride 50 ML IV (17:34)
--- NOTE | 2023-05-29 17:49 | PC.NURSE ---
per admitting provider order - another straight catheterization was performed so urine culture could be obtained. 100ml of dark yellow urine noted immediately post output. pt tolerated well. tech obtained urine/sent to lab. medication administered per provider order. admission worksheet completed. transport notified at this time. pt waiting to be transported upstairs. respirations remain even and unlabored. call johnson placed within reach.
--- NOTE | 2023-05-29 18:24 | PC.NURSE ---
pt being transported upstairs at this time.
--- NOTE | 2023-05-29 20:12 | P.CONNP_ITS ---
History of Present Illness Reason for Consult Consult date: 05/29/23 Reason for consult: TASH Chief Complaint Chief complaint: Rhabdo, TASH, COVID+ History of Present Illness Narrative: 73-year-old male who presented to the ED for evaluation after fall at home with a prolonged down time. Patient likely fell sometime and is estimated to have been the floor for at least 6-7 hours. Patient remembers the incident and denies lightheadedness or dizziness, tripping over anything, or loss of consciousness, but is unsure of exactly when he fell. Patient reports a long history of chronic lower back pain and said that his legs felt weak. 911 and the EMT was called to evaluate patient, who declined to come in to the ED at that time for evaluation. Pt apparently fell again a second time later that night and son was worried about delayed response to questions, so pt was brought in to the ED this morning for further evaluation. The patient himself complains of chronic lower back pain, around baseline. Denies headache or acute vision changes. chest pain/pressure, palpitations. Pt a lifelong smoker of around a pack a day, though no shortness of breath or cough. Denies fever or chills. Son notes pt has had noticeable physical decline over the past couple of months. In the ED pt was afebrile but slightly hypertensive up to 145/64. Vitals otherwise stable, WNL. Labs were significant for testing positive for COVID, creatinine 1.53, AST 60, and CPK 2463. No electrolyte abnormalities. No leukocytosis. Stable H&H. CT?of head showed no intracranial hemorrhage or other acute intracranial pathology, but did show patchy hypoattenuation suggestive of microangiopathy. CT of cervical spine found no acute fracture or traumatic subluxations, though did find chronic degenerative disc disease, severe at C6 through C7 with mild to moderate spinal canal stenosis.. Pt was treated with IVF. Pt was admitted to the hospital for further management. Nephrology was consulted to assist in his clinical care during his current hospital stay. Review of Systems Review of Systems Yes all other systems are reviewed and are negative [facility] Past Medical History Medical History Hyperlipidemia Diabetes Social History Social History Household Members: Family Housing: House Patient Tobacco Use Status: Never used Tobacco service: No Meds Allergies Allergy/AdvReac Type Severity Reaction Status Date / Time atorvastatin [Lipitor] Allergy Unknown Unknown Verified 05/28/23 12:25 No Known Allergies Allergy Unverified 01/19/20 15:33 Active Medications: Current Medications Acetaminophen (Acetaminophen 325 Mg Tablet) 650 mg PO Q6H PRN PRN Reason: Pain, Mild (Pain Scale 1-3) Last Admin: 05/29/23 15:20 Dose: 650 mg Benzonatate (Benzonatate 100 Mg Capsule) 100 mg PO TID PRN PRN Reason: Cough Dextrose (Dextrose 50 % 25 Gm/50 Ml Syringe) 25 gm IVPUSH Q15M PRN; Protocol PRN Reason: per Hypoglycemia Standing Ord. Docusate Sodium (Docusate Sodium 100 Mg Capsule) 100 mg PO DAILY PRN PRN Reason: Constipation Glucose (Glucose Gel 15 Gm Gel..Gram.) 15 gm PO Q15M PRN; Protocol PRN Reason: per Hypoglycemia Standing Ord. Sodium Chloride (Ns) 1,000 mls @ 100 mls/hr IVCONT .Q10H [facility] Last Admin: 05/29/23 10:03 Dose: 100 mls/hr Ceftriaxone Sodium 1 gm/ (Sodium Chloride) 50 mls @ 100 mls/hr IV Q24H [facility] Last Infusion: 05/29/23 19:03 Dose: Infused Insulin Human Lispro (Insulin Lispro 100 Unit/Ml 3 Ml Vial) 0 unit SUBCUT QIDACHS [facility]; Protocol Last Admin: 05/29/23 17:34 Dose: 2 unit Melatonin (Melatonin 3 Mg Tablet) 6 mg PO BEDTIME PRN PRN Reason: Insomnia Ondansetron HCl (Ondansetron Hcl 4 Mg/2 Ml Vial) 4 mg IVPUSH Q8H PRN PRN Reason: Nausea and Vomiting Sodium Chloride (0.9 % Sodium Chloride Flush 3 Ml Syringe) 3 ml IVFLUSH QSHIFT [facility] [place] Last Admin: 05/29/23 16:16 Dose: 3 ml Tamsulosin HCl (Tamsulosin Hcl 0.4 Mg Capsule) 0.4 mg PO DAILY [facility] [place] Last Admin: 05/29/23 14:30 Dose: 0.4 mg Home Medications Medication Instructions Recorded Confirmed Last Taken Type metformin 500 mg tablet 1,000 mg PO BID 05/28/23 05/28/23 05/28/23 History simvastatin 40 mg tablet 40 mg PO BEDTIME 05/28/23 05/28/23 05/28/23 History Physical Exam Vital Signs: Last Vital Signs Temp 99.0 F 05/29/23 19:03 Pulse 73 05/29/23 19:03 Resp 16 05/29/23 19:03 BP 150/69 H 05/29/23 19:03 Pulse Ox 94 05/29/23 19:03 O2 Del Method Room Air 05/29/23 19:03 BMI result Body Mass Index 26.9 Const General: no acute distress HEENT Head: Yes normocephalic Eyes EOM: EOMs intact bilaterally Neck Neck: Yes supple Resp Auscultation: diminished lung sounds Cardio Rate: regular rate GI Palpation (GI): Soft to palpation Neuro General: moves all extremities Results Lab Results 05/28/23 14:33 05/29/23 06:10 Lab results: Chemistry 05/28/23 05/29/23 14:33 06:10 Sodium 138 140 Potassium 4.0 3.9 Carbon Dioxide 20 L 19 L BUN 22 H 20 H Creatinine 1.53 H 1.53 H Calcium 9.5 8.4 D Hematology 05/28/23 14:33 WBC 6.9 Hgb 14.4 Plt Count 170 D Urinalysis 05/28/23 19:43 Urine Color Yellow Urine Appearance Hazy Urine pH 5.5 Ur Specific [place] >= 1.030 H Urine Protein 100 (2+) H Urine Glucose (UA) Negative Urine Ketones Negative Urine Blood Trace Urine Nitrite Negative Ur Leukocyte Esterase Negative Urine RBC 6-10 H Urine WBC 0-5 Ur Squamous Epith Cells 11-20 Hyaline Casts 3-5 Assessment and Plan (1) TASH (acute kidney injury): Status: Acute Plan TASH due to tubular injury from Rhabdomyolysis and COVID No reason to suspect GN/AIN; Serum creatinine stable No indication for renal replacement; C/W current supportive care for now Labs AM; [place] [facility] [place] even after hospital D/C Procedures Date of Service Date of Service: 05/29/23
[2023-05-29 20:14] LABS: Glucose, Whole Blood 182 mg/dL (60-115)
[2023-05-30] MEDS: 0.9 % Sodium Chloride 1,000 ML 100 ML IVCONT ×2 (01:01→10:43)
[2023-05-30 02:58] VITALS: BP 158/59; PULSE 69; RESP 15; TEMP 36.8; O2SAT 95
[2023-05-30] MEDS: Acetaminophen 325 MG TABLET 650 MG PO ×2 (03:17→20:41)
[2023-05-30 07:01] LABS: Hematocrit 35.3 % (42.0-52.0); Hemoglobin 11.9 g/dl (14.0-18.0); Mean Corpuscular HGB Conc 33.7 g/dl (31.0-36.0); Mean Corpuscular Hemoglobin 29.4 pg (27.0-33.0); Mean Corpuscular Volume 87.2 fL (80.0-98.0); Mean Platelet Volume 10.9 fL (9.4-12.4); Platelet Count 160 X10*3/uL (160-400); Red Blood Count 4.05 X10*6/uL (4.60-5.80); Red Cell Distribution Width 13.6 % (11.0-16.0); White Blood Count 5.5 X10*3/uL (4.8-10.8)
[2023-05-30 07:35] LABS: Anion Gap 14 (12-20); Blood Urea Nitrogen 18 mg/dL (9-16); Calcium 8.6 mg/dL (8.4-10.2); Carbon Dioxide 20 mmol/L (22-29); Chloride 112 mmol/L (96-108); Estimated Glomerular Filt Rate 56; Glucose Random 134 mg/dL (60-115); Potassium 4.1 mmol/L (3.3-5.1); Sodium 142 mmol/L (135-145)
[2023-05-30 07:37] LABS: Anion Gap 17 (12-20); Blood Urea Nitrogen 18 mg/dL (9-16); Calcium 8.8 mg/dL (8.4-10.2); Carbon Dioxide 18 mmol/L (22-29); Chloride 111 mmol/L (96-108); Creatinine Clr Calc Pharmacy 55.9; Estimated Glomerular Filt Rate 57; Glucose Random 135 mg/dL (60-115); Sodium 142 mmol/L (135-145)
[2023-05-30 07:42] LABS: Glucose, Whole Blood 129 mg/dL (60-115)
[2023-05-30 07:52] VITALS: BP 154/70; PULSE 69; RESP 20; TEMP 36.4; O2SAT 95
[2023-05-30] MEDS: Tamsulosin HCL 0.4 MG CAPSULE PO (09:01)
[2023-05-30] MEDS: 0.9 % Sodium Chloride Flush 3 ML SYRINGE IVFLUSH (09:02)
--- NOTE | 2023-05-30 10:51 | PM.UROCN ---
History of Present Illness Consult details Consult date: 05/30/23 Narrative: 73-year-old male with a PMH significant for HLD, non-insulin dependent diabetes type 2, and chronic lower back pain admitted due to fall, prolonged down time, generalized weakness, rhadomyalisis. Renal US, enlarged right kidney with complex appearing right hydronephrosis and proximal hydroureter., unclear etiology. In discussion with the patient he states he had blood in the urine on and off last year, He states he saw a urologist and describes having an office cystoscopy and was told everything was clear. He is voiding better this morning on Flomax denies abdominal pain. The patient will eventually need a CT urogram for further evaluation and outpatient urology follow-up. Review of Systems Review of Systems: 10 point ROS negative other than stated in [facility] Past Medical History Medical History Hyperlipidemia Diabetes Social History Social History Household Members: Family Housing: House Patient Tobacco Use Status: Never used Tobacco service: No Meds Allergies Allergy/AdvReac Type Severity Reaction Status Date / Time atorvastatin [Lipitor] Allergy Unknown Unknown Verified 05/28/23 12:25 No Known Allergies Allergy Unverified 01/19/20 15:33 Active Medications: Current Medications Acetaminophen (Acetaminophen 325 Mg Tablet) 650 mg PO Q6H PRN PRN Reason: Pain, Mild (Pain Scale 1-3) Last Admin: 05/30/23 03:17 Dose: 650 mg Benzonatate (Benzonatate 100 Mg Capsule) 100 mg PO TID PRN PRN Reason: Cough Dextrose (Dextrose 50 % 25 Gm/50 Ml Syringe) 25 gm IVPUSH Q15M PRN; Protocol PRN Reason: per Hypoglycemia Standing Ord. Docusate Sodium (Docusate Sodium 100 Mg Capsule) 100 mg PO DAILY PRN PRN Reason: Constipation Glucose (Glucose Gel 15 Gm Gel..Gram.) 15 gm PO Q15M PRN; Protocol PRN Reason: per Hypoglycemia Standing Ord. Sodium Chloride (Ns) 1,000 mls @ 100 mls/hr IVCONT .Q10H [facility] Last Admin: 05/30/23 10:43 Dose: 100 mls/hr Ceftriaxone Sodium 1 gm/ (Sodium Chloride) 50 mls @ 100 mls/hr IV Q24H [facility] Last Infusion: 05/29/23 19:03 Dose: Infused Insulin Human Lispro (Insulin Lispro 100 Unit/Ml 3 Ml Vial) 0 unit SUBCUT QIDACHS [facility]; Protocol Last Admin: 05/30/23 07:53 Dose: Not Given Melatonin (Melatonin 3 Mg Tablet) 6 mg PO BEDTIME PRN PRN Reason: Insomnia Ondansetron HCl (Ondansetron Hcl 4 Mg/2 Ml Vial) 4 mg IVPUSH Q8H PRN PRN Reason: Nausea and Vomiting Sodium Chloride (0.9 % Sodium Chloride Flush 3 Ml Syringe) 3 ml IVFLUSH QSHIFT [facility] Last Admin: 05/30/23 09:02 Dose: 3 ml Tamsulosin HCl (Tamsulosin Hcl 0.4 Mg Capsule) 0.4 mg PO DAILY [facility] Last Admin: 05/30/23 09:01 Dose: 0.4 mg Home Medications Medication Instructions Recorded Confirmed Last Taken Type metformin 500 mg tablet 1,000 mg PO BID 05/28/23 05/28/23 05/28/23 History simvastatin 40 mg tablet 40 mg PO BEDTIME 05/28/23 05/28/23 05/28/23 History Physical Exam Vital Signs: Vital Signs: Last Vital Signs Temp 97.6 F 05/30/23 07:52 Pulse 69 05/30/23 07:52 Resp 20 05/30/23 07:52 BP 154/70 H 05/30/23 07:52 Pulse Ox 95 05/30/23 07:52 O2 Del Method Room Air 05/30/23 07:52 BMI result Body Mass Index 26.9 Const: General: healthy appearing, no acute distress and well developed Orientation/consciousness: patient oriented x3 HEENT: Head: Yes normocephalic and Yes atraumatic Eyes: Conjunctivae: conjunctivae normal Neck: Neck: Yes normal visual inspection Chest: Chest palpation & inspection: normal inspection of the chest Resp: Effort & Inspection: normal respiratory effort Cardio: Rate: regular rate GI: Inspection: Yes normal to inspection Palpation (GI): Soft to palpation : General: Yes no CVA tenderness Back/Spine/Pelvis: Back: no CVA tenderness Skin: General skin exam: no rashes or lesions noted Neuro: General: patient oriented x3 Extrem: General: No pedal edema Psych: Appearance: grossly normal Affect: normal affect Results Labs 05/30/23 06:21 05/30/23 06:21 Labs: Abnormal lab results 05/29/23 05/29/23 05/29/23 Range/Units 13:19 16:16 20:07 RBC (4.60-5.80) X10*6/uL Hgb (14.0-18.0) g/dl Hct (42.0-52.0) % Chloride (96-108) mmol/L Carbon Dioxide (22-29) mmol/L BUN (9-16) mg/dL POC Glucose 162 H 176 H 182 H (60-115) mg/dL Random Glucose (60-115) mg/dL Total Creatine Kinase (38-174) U/L 05/30/23 05/30/23 05/30/23 Range/Units 06:21 06:21 06:21 RBC 4.05 L (4.60-5.80) X10*6/uL Hgb 11.9 L (14.0-18.0) g/dl Hct 35.3 L (42.0-52.0) % Chloride 112 H 111 H (96-108) mmol/L Carbon Dioxide 20 L 18 L (22-29) mmol/L BUN 18 H (9-16) mg/dL POC Glucose (60-115) mg/dL Random Glucose (60-115) mg/dL Total Creatine Kinase (38-174) U/L 05/30/23 05/30/23 05/30/23 Range/Units 06:21 06:21 07:34 RBC (4.60-5.80) X10*6/uL Hgb (14.0-18.0) g/dl Hct (42.0-52.0) % Chloride (96-108) mmol/L Carbon Dioxide (22-29) mmol/L BUN 18 H (9-16) mg/dL POC Glucose 129 H (60-115) mg/dL Random Glucose 134 H 135 H (60-115) mg/dL Total Creatine Kinase 1607 H (38-174) U/L Short CBC 05/30/23 Range/Units 06:21 WBC 5.5 (4.8-10.8) X10*3/uL Hgb 11.9 L (14.0-18.0) g/dl Hct 35.3 L (42.0-52.0) % Plt Count 160 (160-400) X10*3/uL BMP 05/30/23 05/30/23 05/30/23 06:21 06:21 06:21 Sodium 142 142 Potassium 4.1 4.0 Chloride 112 H Carbon Dioxide BUN Creatinine Calcium 05/30/23 05/30/23 05/30/23 06:21 06:21 06:21 Sodium Potassium Chloride 111 H Carbon Dioxide 20 L 18 L BUN 18 H 18 H Creatinine 1.27 Calcium 05/30/23 05/30/23 06:21 06:21 Sodium Potassium Chloride Carbon Dioxide BUN Creatinine 1.25 Calcium 8.6 8.8 Cardiac Enzymes 05/30/23 Range/Units 06:21 Total Creatine Kinase 1607 H (38-174) U/L Urine 05/28/23 Range/Units 19:43 Urine Color Yellow Urine Appearance Hazy Urine pH 5.5 (5.0-9.0) Ur Specific [place] >= 1.030 H (1.005-1.025) Urine Protein 100 (2+) H (Neg-Trace) mg/dL Urine Glucose (UA) Negative (Negative) mg/dL Imaging Additional studies: EXAMINATION: US RETROPERITONEAL LIMITED (RENAL ONLY) CLINICAL INFORMATION: Acute kidney injury. COMPARISON: CT dated 11/18/2018 TECHNIQUE: Real-time ultrasound was used to scan the bilateral kidneys and bladder. Permanent documented images obtained FINDINGS: RIGHT KIDNEY: 13.6 x 5.4 x 5.8 cm (SAG x AP x TRV) for a volume of 222.8 mL. Renal cortical thickness is normal. No calculi. 1.6 x 1.8 x 1.5 cm right lower pole cyst is seen. There is right hydronephrosis with complex appearing material within the intrarenal collecting system. Proximal right ureter at the level of the mid pole is enlarged, complex and thickened appearing measuring 4.1 x 4.2 x 4 cm. There is no internal vascularity. More distal right ureter is not documented. LEFT KIDNEY: 10.5 x 5.8 x 5.6 cm (SAG x AP x TRV) for a volume of 175.4 mm. The kidney is normal in size, shape and contour. Renal cortical thickness is normal. No renal calculi or focal parenchymal lesions. BLADDER: Limited evaluation. Urinary bladder is moderately distended with bilateral ureteral jets noted. OTHER: Prostate is enlarged and heterogeneous measuring 65 mL in volume. Prostate causes indentation on the inferior aspect of the urinary bladder. IMPRESSION: Comparatively enlarged right kidney with complex appearing right hydronephrosis and proximal hydroureter. It is unclear whether complex material is related to blood products, infected material/pus or combination thereof. Proximal right ureteral mass not entirely excluded. Urgent CT urogram recommended. At the time of this dictation, PSA service contacted to inform referring physician of findings and recommendations. Assessment and Plan (1) TASH (acute kidney injury): Status: Acute (2) Rhabdomyolysis: Qualifiers: Rhabdomyolysis type: non-traumatic Qualified Code(s): M62.82 - Rhabdomyolysis Status: Acute (3) History of gross hematuria: Status: Acute (4) Renal and urologic disorders: Status: Acute Plan Renal US, enlarged right kidney with complex appearing right hydronephrosis and proximal hydroureter., unclear etiology. TASH likely secondary to rhabdomyolysis, -- Would continue to manage this expect renal function to improve and can get CT Urogram next week and would hydrate before and after IV contrast. Procedures Date of Service Date of Service: 05/30/23
--- NOTE | 2023-05-30 11:06 | P.PNIM_ITS ---
Subjective Subjective Date of Service: 05/30/23 Interval History: tash,covid ,enlarged right kidney with complex appearing right hydronephrosis and proximal hydroureter Review of Systems generalized weak denies any sob or chest pain no fever Physical Exam 2 Vital Signs: Vital Signs: Last Vital Signs Temp 97.6 F 05/30/23 07:52 Pulse 69 05/30/23 07:52 Resp 20 05/30/23 07:52 BP 154/70 H 05/30/23 07:52 Pulse Ox 95 05/30/23 07:52 O2 Del Method Room Air 05/30/23 07:52 BMI result Body Mass Index 26.9 Appearance: Alert.? Oriented X2 , feels comfortable .? generalised weak. cvs: [id number], [id number] . res: clear to auscultation ,no rhonchii or wheezing abd: no rebound or guarding ,nt, bs present. ext pulses present , no cyanosis . neuro: moves all ext Objective Data Active Medications Acetaminophen (Acetaminophen 325 Mg Tablet) 650 mg PO Q6H PRN PRN Reason: Pain, Mild (Pain Scale 1-3) Last Admin: 05/30/23 03:17 Dose: 650 mg Documented By: SANDRA Benzonatate (Benzonatate 100 Mg Capsule) 100 mg PO TID PRN PRN Reason: Cough Dextrose (Dextrose 50 % 25 Gm/50 Ml Syringe) 25 gm IVPUSH Q15M PRN; Protocol PRN Reason: per Hypoglycemia Standing Ord. Docusate Sodium (Docusate Sodium 100 Mg Capsule) 100 mg PO DAILY PRN PRN Reason: Constipation Glucose (Glucose Gel 15 Gm Gel..Gram.) 15 gm PO Q15M PRN; Protocol PRN Reason: per Hypoglycemia Standing Ord. Sodium Chloride (Ns) 1,000 mls @ 100 mls/hr IVCONT .Q10H [facility] Last Admin: 05/30/23 10:43 Dose: 100 mls/hr Documented By: HUGH Ceftriaxone Sodium 1 gm/ (Sodium Chloride) 50 mls @ 100 mls/hr IV Q24H [facility] Last Infusion: 05/29/23 19:03 Dose: Infused Documented By: EDNA Insulin Human Lispro (Insulin Lispro 100 Unit/Ml 3 Ml Vial) 0 unit SUBCUT QIDACHS [facility]; Protocol Last Admin: 05/30/23 07:53 Dose: Not Given Documented By: HUGH Non-Admin Reason: No Insulin Coverage Melatonin (Melatonin 3 Mg Tablet) 6 mg PO BEDTIME PRN PRN Reason: Insomnia Ondansetron HCl (Ondansetron Hcl 4 Mg/2 Ml Vial) 4 mg IVPUSH Q8H PRN PRN Reason: Nausea and Vomiting Sodium Chloride (0.9 % Sodium Chloride Flush 3 Ml Syringe) 3 ml IVFLUSH QSHIFT [facility] Last Admin: 05/30/23 09:02 Dose: 3 ml Documented By: HUGH Tamsulosin HCl (Tamsulosin Hcl 0.4 Mg Capsule) 0.4 mg PO DAILY [facility] Last Admin: 05/30/23 09:01 Dose: 0.4 mg Documented By: HUGH Labs 05/30/23 06:21 05/30/23 06:21 Labs: Laboratory Results - last 24 hr 05/29/23 05/29/23 05/29/23 13:19 16:16 20:07 MCV MCH MCHC RDW Plt Count MPV Absolute Nucleated RBC Nucleated RBC % (auto) Anion Gap Estim Creat Clear Calc Estimated GFR POC Glucose 162 H 176 H 182 H Random Glucose Calcium Total Creatine Kinase 05/30/23 05/30/23 05/30/23 06:21 06:21 06:21 MCV 87.2 MCH 29.4 MCHC 33.7 RDW 13.6 Plt Count 160 MPV 10.9 Absolute Nucleated RBC 0.000 Nucleated RBC % (auto) 0.0 Anion Gap 14 17 Estim Creat Clear Calc 55.0 55.9 Estimated GFR 56 POC Glucose Random Glucose Calcium Total Creatine Kinase 05/30/23 05/30/23 05/30/23 06:21 06:21 06:21 MCV MCH MCHC RDW Plt Count MPV Absolute Nucleated RBC Nucleated RBC % (auto) Anion Gap Estim Creat Clear Calc Estimated GFR 57 POC Glucose Random Glucose 134 H 135 H Calcium 8.6 8.8 Total Creatine Kinase 1607 H 05/30/23 07:34 MCV MCH MCHC RDW Plt Count MPV Absolute Nucleated RBC Nucleated RBC % (auto) Anion Gap Estim Creat Clear Calc Estimated GFR POC Glucose 129 H Random Glucose Calcium Total Creatine Kinase Assessment and Plan (1) TASH (acute kidney injury): Status: Acute (2) Obstructive uropathy: Status: Acute Plan 73-year-old male with a PMH significant for HLD, non-insulin dependent diabetes type 2, and chronic lower back pain who presents to the ED for evaluation after fall at home with a prolonged down time yesterday. Pt was treated with IVF. Pt will be admitted to the hospital for treatment further evaluation of rhabdomyolysis, TASH, and generalized weakness in the setting of COVID infection. Rhabdomyolysis,s/p fall( Likely secondary to generalized weakness in the setting of COVID infection) CPK [phone] continue ivf ,encouraged for po inatke/hydration TASH-Likely multifactorial ( secondary to rhabdo, dehydration,obstructive uropathy). Creatinine improving from 1.53 to 1.25 renal us-? right sided hydroureter continue IVF,flomax ,moniter pvr,Folllow BMP,urology eval COVID infection Pt largely asymptomatic, not hypoxic, in no respiratory distress Non insulin dependent diabetes type 2 Hold metformin fs with sliding scale insulin Diabetic diet HLD hold simvastatin for now d/t rhabdo Pt with reported allergy to atorvastatin Generalised weakness: Pt eval-str. Full Code DVT Prophylaxis: Heparin ongoing hospitalization need : treatment of?rhabdomyolysis, TASH,urinary retention and generalized weakness in the setting of COVID infection- need treatment with IVF, close monitoring of labs-renal function/electrolytes ,cpk ,need urology expert eval for right hydroureter . Quality Stroke Does the patient have a stroke diagnosis?: No VTE Prior VTE?: No VTE Risk Level:: Medical - moderate - high VTE Device Contraindication: Treatment Not Indicated VTE Drug Contraindication: N/A - Med Ordered
[2023-05-30] MEDS: Insulin Lispro 100 UNIT/ML 3 ML VIAL SUBCUT (11:32)
[2023-05-30 11:44] VITALS: BP 154/83; PULSE 77; RESP 16; TEMP 36.5; O2SAT 96
[2023-05-30 11:44] LABS: Glucose, Whole Blood 197 mg/dL (60-115)
[2023-05-30 15:32] VITALS: BP 166/74; PULSE 80; RESP 17; TEMP 36.4; O2SAT 96
[2023-05-30 16:35] LABS: Glucose, Whole Blood 150 mg/dL (60-115)
[2023-05-30] MEDS: cefTRIAXone sodium 1 GM in 0.9 % Sodium Chloride 50 ML IV (17:54)
[2023-05-30 19:38] VITALS: BP 154/69; PULSE 70; RESP 17; TEMP 36.5; O2SAT 95
[2023-05-30 19:48] LABS: Glucose, Whole Blood 139 mg/dL (60-115)
[2023-05-30] MEDS: 0.9 % Sodium Chloride 1,000 ML 80 ML IVCONT (22:54)
[2023-05-30 23:08] VITALS: BP 157/72; PULSE 68; RESP 16; TEMP 37.1; O2SAT 94
[2023-05-31 03:26] VITALS: BP 158/72; PULSE 72; RESP 16; TEMP 36.5; O2SAT 97
[2023-05-31 07:21] VITALS: BP 147/65; PULSE 66; RESP 18; TEMP 37.2; O2SAT 96
[2023-05-31 07:28] LABS: Glucose, Whole Blood 146 mg/dL (60-115)
[2023-05-31 07:47] LABS: Anion Gap 11 (12-20); Blood Urea Nitrogen 14 mg/dL (9-16); Calcium 8.5 mg/dL (8.4-10.2); Carbon Dioxide 22 mmol/L (22-29); Chloride 111 mmol/L (96-108); Creatinine Clr Calc Pharmacy 60.8; Estimated Glomerular Filt Rate > 60; Glucose Random 146 mg/dL (60-115); Sodium 140 mmol/L (135-145)
[2023-05-31] MEDS: Tamsulosin HCL 0.4 MG CAPSULE PO (09:20)
[2023-05-31] MEDS: 0.9 % Sodium Chloride Flush 3 ML SYRINGE IVFLUSH ×2 (09:20→17:00)
[2023-05-31 11:05] VITALS: BP 147/67; PULSE 62; RESP 18; TEMP 37.1; O2SAT 98
[2023-05-31 11:26] LABS: Glucose, Whole Blood 185 mg/dL (60-115)
[2023-05-31] MEDS: 0.9 % Sodium Chloride 1,000 ML 80 ML IVCONT (11:41)
[2023-05-31] MEDS: Insulin Lispro 100 UNIT/ML 3 ML VIAL SUBCUT ×2 (11:43→16:59)
--- NOTE | 2023-05-31 14:54 | P.PNIM_ITS ---
Subjective Subjective Date of Service: 05/31/23 Interval History: Rhabdo, COVID Review of Systems Patient seems to be improving, more active today,eating better no fevers Physical Exam 2 Vital Signs: Vital Signs: Last Vital Signs Temp 98.8 F 05/31/23 11:05 Pulse 62 05/31/23 11:05 Resp 18 05/31/23 11:05 BP 147/67 H 05/31/23 11:05 Pulse Ox 98 05/31/23 11:05 O2 Del Method Room Air 05/31/23 11:05 BMI result Body Mass Index 26.9 Appearance: Alert.? Oriented X3, feels comfortable .? generalised weak. cvs: [id number], [id number] . res: clear to auscultation ,no rhonchii or wheezing abd: no rebound or guarding ,nt, bs present. ext pulses present , no cyanosis . neuro: moves all ext Objective Data Active Medications Acetaminophen (Acetaminophen 325 Mg Tablet) 650 mg PO Q6H PRN PRN Reason: Pain, Mild (Pain Scale 1-3) Last Admin: 05/30/23 20:41 Dose: 650 mg Documented By: CHRISTOPHER Benzonatate (Benzonatate 100 Mg Capsule) 100 mg PO TID PRN PRN Reason: Cough Dextrose (Dextrose 50 % 25 Gm/50 Ml Syringe) 25 gm IVPUSH Q15M PRN; Protocol PRN Reason: per Hypoglycemia Standing Ord. Docusate Sodium (Docusate Sodium 100 Mg Capsule) 100 mg PO DAILY PRN PRN Reason: Constipation Glucose (Glucose Gel 15 Gm Gel..Gram.) 15 gm PO Q15M PRN; Protocol PRN Reason: per Hypoglycemia Standing Ord. Sodium Chloride (Ns) 1,000 mls @ 80 mls/hr IVCONT .[id number] [facility] Last Admin: 05/31/23 11:41 Dose: 80 mls/hr Documented By: HUGH Ceftriaxone Sodium 1 gm/ (Sodium Chloride) 50 mls @ 100 mls/hr IV Q24H [facility] Last Infusion: 05/30/23 18:28 Dose: Infused Documented By: HUGH Insulin Human Lispro (Insulin Lispro 100 Unit/Ml 3 Ml Vial) 0 unit SUBCUT QIDACHS [facility]; Protocol Last Admin: 05/31/23 11:43 Dose: 2 unit Documented By: HUGH Melatonin (Melatonin 3 Mg Tablet) 6 mg PO BEDTIME PRN PRN Reason: Insomnia Ondansetron HCl (Ondansetron Hcl 4 Mg/2 Ml Vial) 4 mg IVPUSH Q8H PRN PRN Reason: Nausea and Vomiting Sodium Chloride (0.9 % Sodium Chloride Flush 3 Ml Syringe) 3 ml IVFLUSH QSHIFT [facility] Last Admin: 05/31/23 09:20 Dose: 3 ml Documented By: HUGH Tamsulosin HCl (Tamsulosin Hcl 0.4 Mg Capsule) 0.4 mg PO DAILY [facility] Last Admin: 05/31/23 09:20 Dose: 0.4 mg Documented By: HUGH Labs 05/30/23 06:21 05/31/23 06:47 Labs: Laboratory Results - last 24 hr 05/30/23 05/30/23 05/31/23 16:25 19:33 06:47 Anion Gap 11 L Estim Creat Clear Calc 60.8 Estimated GFR > 60 POC Glucose 150 H 139 H Random Glucose 146 H Calcium 8.5 Total Creatine Kinase 1076 H 05/31/23 05/31/23 07:19 11:16 Anion Gap Estim Creat Clear Calc Estimated GFR POC Glucose 146 H 185 H Random Glucose Calcium Total Creatine Kinase Microbiology Microbiology Results: Microbiology 05/29/23 17:28 Urine Culture - Preliminary Urine Catheterized - Straight Catheter Enterococcus/Streptococcus sp Assessment and Plan (1) TAHS (acute kidney injury): Status: Acute (2) Obstructive uropathy: Status: Acute Plan 73-year-old male with a PMH significant for HLD, non-insulin dependent diabetes type 2, and chronic lower back pain who presents to the ED for evaluation after fall at home with a prolonged down time yesterday. Pt was treated with IVF. Pt will be admitted to the hospital for treatment further evaluation of rhabdomyolysis, TASH, and generalized weakness in the setting of COVID infection. Rhabdomyolysis,s/p fall( Likely secondary to generalized weakness in the setting of COVID infection) CPK [id number] continue ivf ,encouraged for po inatke/hydration TASH-Likely multifactorial ( secondary to rhabdo, dehydration,obstructive uropathy). Creatinine improving from 1.53 to 1.25 renal us-? right sided hydroureter continue IVF,flomax ,moniter pvr,Folllow BMP,urology eval COVID infection Pt largely asymptomatic, not hypoxic, in no respiratory distress Non insulin dependent diabetes type 2 Hold metformin fs with sliding scale insulin Diabetic diet HLD hold simvastatin for now d/t rhabdo Pt with reported allergy to atorvastatin Generalised weakness: Pt eval-str. Full Code DVT Prophylaxis: Heparin ongoing hospitalization need : treatment of?rhabdomyolysis, TASH,urinary retention and generalized weakness in the setting of COVID infection- need treatment with IVF, close monitoring of labs-renal function/electrolytes ,cpk ,need urology expert eval for right hydroureter . Quality Stroke Does the patient have a stroke diagnosis?: No VTE Prior VTE?: No VTE Risk Level:: Medical - moderate - high VTE Device Contraindication: Treatment Not Indicated VTE Drug Contraindication: N/A - Med Ordered
[2023-05-31 15:47] VITALS: BP 167/77; PULSE 73; RESP 18; TEMP 36.7; O2SAT 99
[2023-05-31 16:12] LABS: Glucose, Whole Blood 174 mg/dL (60-115)
[2023-05-31] MEDS: cefTRIAXone sodium 1 GM in 0.9 % Sodium Chloride 50 ML IV (16:59)
[2023-05-31 19:39] VITALS: BP 154/62; PULSE 72; RESP 18; TEMP 37.1; O2SAT 97
[2023-05-31 21:14] LABS: Glucose, Whole Blood 133 mg/dL (60-115)
[2023-05-31 23:20] VITALS: BP 146/67; PULSE 71; RESP 18; TEMP 37.2; O2SAT 95
[2023-06-01 03:25] VITALS: BP 169/72; PULSE 72; RESP 18; TEMP 37.1; O2SAT 95
[2023-06-01 07:38] LABS: Glucose, Whole Blood 142 mg/dL (60-115)
[2023-06-01 07:39] LABS: Anion Gap 13 (12-20); Blood Urea Nitrogen 12 mg/dL (9-16); Calcium 8.7 mg/dL (8.4-10.2); Carbon Dioxide 21 mmol/L (22-29); Chloride 111 mmol/L (96-108); Creatinine Clr Calc Pharmacy 63.5; Estimated Glomerular Filt Rate > 60; Glucose Random 145 mg/dL (60-115); Potassium 3.7 mmol/L (3.3-5.1); Sodium 141 mmol/L (135-145)
[2023-06-01 07:55] VITALS: BP 154/72; PULSE 70; RESP 20; TEMP 37.2; O2SAT 93
[2023-06-01] MEDS: 0.9 % Sodium Chloride Flush 3 ML SYRINGE IVFLUSH ×3 (08:52→21:03)
[2023-06-01] MEDS: Tamsulosin HCL 0.4 MG CAPSULE PO (08:52)
[2023-06-01 11:54] VITALS: BP 164/71; PULSE 75; RESP 18; TEMP 36.7; O2SAT 97
[2023-06-01 11:58] LABS: Glucose, Whole Blood 235 mg/dL (60-115)
[2023-06-01] MEDS: Insulin Lispro 100 UNIT/ML 3 ML VIAL SUBCUT ×2 (12:15→21:03)
--- NOTE | 2023-06-01 13:56 | MHC.CM.PN ---
EMR reviewed and per MD rounds, pt is not medically cleared for D/C due to management of covid-19 infection, pt also needs a CT angiogram and Urology consult. CM will continue to follow.
--- NOTE | 2023-06-01 15:07 | PC.NURSE ---
Assumed care of patient at this time.
[2023-06-01] MEDS: iohexoL 350 MG/ML 75 ML INFUS..BTL 85 ML IV (15:38)
--- NOTE | 2023-06-01 15:41 | HO.PM.IMPN ---
Subjective Subjective Date of Service: 06/01/23 Interval History: rhabdomylysis ,tash Review of Systems tash seems improving no fever or chills or abd pain Physical Exam Vital Signs: Vital Signs: Last Vital Signs Temp 98.0 F 06/01/23 11:54 Pulse 75 06/01/23 11:54 Resp 18 06/01/23 11:54 BP 164/71 H 06/01/23 11:54 Pulse Ox 97 06/01/23 11:54 O2 Del Method Room Air 06/01/23 11:54 BMI result Body Mass Index 26.9 Appearance: Alert.? Oriented X3, feels comfortable .? generalised weak. cvs: [id number], [id number] . res: clear to auscultation ,no rhonchii or wheezing abd: no rebound or guarding ,nt, bs present. ext pulses present , no cyanosis . neuro: moves all ext Objective Data Active Medications Acetaminophen (Acetaminophen 325 Mg Tablet) 650 mg PO Q6H PRN PRN Reason: Pain, Mild (Pain Scale 1-3) Last Admin: 05/30/23 20:41 Dose: 650 mg Documented By: CHRISTOPHER Benzonatate (Benzonatate 100 Mg Capsule) 100 mg PO TID PRN PRN Reason: Cough Dextrose (Dextrose 50 % 25 Gm/50 Ml Syringe) 25 gm IVPUSH Q15M PRN; Protocol PRN Reason: per Hypoglycemia Standing Ord. Docusate Sodium (Docusate Sodium 100 Mg Capsule) 100 mg PO DAILY PRN PRN Reason: Constipation Glucose (Glucose Gel 15 Gm Gel..Gram.) 15 gm PO Q15M PRN; Protocol PRN Reason: per Hypoglycemia Standing Ord. Ceftriaxone Sodium 1 gm/ (Sodium Chloride) 50 mls @ 100 mls/hr IV Q24H [facility] Last Infusion: 05/31/23 17:32 Dose: Infused Documented By: HUGH Insulin Human Lispro (Insulin Lispro 100 Unit/Ml 3 Ml Vial) 0 unit SUBCUT QIDACHS [facility]; Protocol Last Admin: 06/01/23 12:15 Dose: 4 unit Documented By: ABIDA Melatonin (Melatonin 3 Mg Tablet) 6 mg PO BEDTIME PRN PRN Reason: Insomnia Ondansetron HCl (Ondansetron Hcl 4 Mg/2 Ml Vial) 4 mg IVPUSH Q8H PRN PRN Reason: Nausea and Vomiting Sodium Chloride (0.9 % Sodium Chloride Flush 3 Ml Syringe) 3 ml IVFLUSH QSHIFT [facility] Last Admin: 06/01/23 12:16 Dose: 3 ml Documented By: ABIDA Tamsulosin HCl (Tamsulosin Hcl 0.4 Mg Capsule) 0.4 mg PO DAILY [facility] Last Admin: 06/01/23 08:52 Dose: 0.4 mg Documented By: ABIDA Labs 05/30/23 06:21 06/01/23 06:42 Labs: Laboratory Results - last 24 hr 05/31/23 05/31/23 06/01/23 15:50 20:51 06:42 Hold Purple Top SEE NOTE Anion Gap 13 Estim Creat Clear Calc 63.5 Estimated GFR > 60 POC Glucose 174 H 133 H Random Glucose 145 H Calcium 8.7 06/01/23 06/01/23 07:33 11:44 Hold Purple Top Anion Gap Estim Creat Clear Calc Estimated GFR POC Glucose 142 H 235 H Random Glucose Calcium Microbiology Microbiology Results: Microbiology 05/29/23 17:28 Urine Culture - Final Urine Catheterized - Straight Catheter Enterococcus faecalis Assessment and Plan (1) TASH (acute kidney injury): Status: Acute (2) Obstructive uropathy: Status: Acute Plan 73-year-old male with a PMH significant for HLD, non-insulin dependent diabetes type 2, and chronic lower back pain who presents to the ED for evaluation after fall at home with a prolonged down time yesterday. Pt was treated with IVF. Pt will be admitted to the hospital for treatment further evaluation of rhabdomyolysis, TASH, and generalized weakness in the setting of COVID infection. Rhabdomyolysis,s/p fall( Likely secondary to generalized weakness in the setting of COVID infection) CPK [id number] continue ivf ,encouraged for po inatke/hydration TASH-Likely multifactorial ( secondary to rhabdo, dehydration,obstructive uropathy). Creatinine improving from 1.53 to 1.25 renal us-? right sided hydroureter ct urogram pending continue IVF,flomax ,moniter pvr,Folllow BMP,urology eval COVID infection Pt largely asymptomatic, not hypoxic, in no respiratory distress Non insulin dependent diabetes type 2 Hold metformin fs with sliding scale insulin Diabetic diet HLD hold simvastatin for now d/t rhabdo Pt with reported allergy to atorvastatin Generalised weakness: Pt eval-str. Full Code DVT Prophylaxis: Heparin ongoing hospitalization need : treatment of?rhabdomyolysis, TASH,urinary retention and generalized weakness in the setting of COVID infection- need treatment with IVF, close monitoring of labs-renal function/electrolytes ,cpk ,need urology expert eval for right hydroureter - need further workup with ct urogram and urology followup. Quality Stroke Does the patient have a stroke diagnosis?: No VTE Prior VTE?: No VTE Risk Level:: Medical - moderate - high VTE Device Contraindication: Treatment Not Indicated VTE Drug Contraindication: N/A - Med Ordered
[2023-06-01 16:13] VITALS: BP 149/65; PULSE 70; RESP 20; TEMP 37.2; O2SAT 96
[2023-06-01 16:28] LABS: Glucose, Whole Blood 116 mg/dL (60-115)
[2023-06-01] MEDS: cefTRIAXone sodium 1 GM in 0.9 % Sodium Chloride 50 ML IV (17:04)
--- NOTE | 2023-06-01 17:29 | P.PNUR_ITS ---
Subjective Subjective Date of Service: 06/01/23 Interval history: 73 year old male with h/o gross hematuria. 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 Renal function is improved. He does not need an urgent stent. Discussed with patient will further manage as an outpatient. Imaging: Mild right hydronephrosis, proximal ureteral dilatation and delayed right nephrogram. There is abnormal wall thickening of the central right renal collecting system involving the infundibuli, right renal pelvis and right proximal ureter. 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 Physical Exam 2 Vital Signs: Vital Signs: Last Vital Signs Temp 98.9 F 06/01/23 16:13 Pulse 70 06/01/23 16:13 Resp 20 06/01/23 16:13 BP 149/65 H 06/01/23 16:13 Pulse Ox 96 06/01/23 16:13 O2 Del Method Room Air 06/01/23 16:13 BMI result Body Mass Index 26.9 Urology Results Labs 05/30/23 06:21 06/01/23 06:42 Labs: Laboratory Results - last 24 hr 05/31/23 06/01/23 06/01/23 20:51 06:42 07:33 Hold Purple Top SEE NOTE Sodium 141 Potassium 3.7 Chloride 111 H Carbon Dioxide 21 L Anion Gap 13 BUN 12 Creatinine 1.10 Estim Creat Clear Calc 63.5 Estimated GFR > 60 POC Glucose 133 H 142 H Random Glucose 145 H Calcium 8.7 06/01/23 06/01/23 11:44 16:11 Hold Purple Top Sodium Potassium Chloride Carbon Dioxide Anion Gap BUN Creatinine Estim Creat Clear Calc Estimated GFR POC Glucose 235 H 116 H Random Glucose Calcium Date of Service: 06/01/23 EXAMINATION: CT ABDOMEN AND PELVIS WITHOUT AND WITH CONTRAST CLINICAL INFORMATION: Right hydronephrosis COMPARISON: Previous renal ultrasound from 05/29/[address] of the abdomen and pelvis November 2018 TECHNIQUE: Noncontrast CT of the abdomen and pelvis is performed followed by split bolus contrast-enhanced images using 85 mL Omnipaque 350 contrast.? Postcontrast imaging is performed during the combined nephrogram and excretion phase. Sagittal and coronal reformatted images were obtained on the technologist's workstation for both the precontrast and postcontrast phases. This CT examination was performed using dose optimization techniques as appropriate, variously including the following: *Automated exposure control *Adjustment of mA and/or kV according to patient size (this includes techniques or standardized protocols for targeted exams where dose is matched to indication/reason for exam; i.e. extremities or head) *Use of iterative reconstruction technique DLP: 767 mGy-cm FINDINGS: LUNG BASES: The visualized lung bases are unremarkable. LIVER, GALLBLADDER, AND BILIARY TREE: The liver is normal in size, shape, and attenuation. No focal hepatic lesion or biliary ductal dilatation is present. The gallbladder is unremarkable with no evidence of radiopaque gallstones, gallbladder wall thickening, or obvious pericholecystic inflammatory changes. PANCREAS: Unremarkable. SPLEEN: Unremarkable. ADRENAL GLANDS: Low-attenuation slightly prominent adrenal glands similar to previous scan. No focal adrenal nodule seen. KIDNEYS AND URETERS: The left kidney measures 10 cm and the right 11.6 cm in length. There is a delayed right nephrogram. There is mild right hydronephrosis and proximal. There is abnormal wall thickening of the central right renal collecting system involving the infundibuli, right renal pelvis and right proximal ureter. There is some excreted contrast seen in mildly dilated calyces in the right kidney, upper greater than lower pole. There is no excreted contrast seen in the right renal pelvis or ureter. 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 No renal mass. Bilateral 1 cm simple appearing renal cysts in the lower pole. No imaging follow-up recommended. Left kidney is normal. No left hydronephrosis, ureteral dilatation or filling defect seen. BLADDER: The prostate gland is enlarged and protrudes into the base of bladder. The bladder is otherwise normal. GASTROINTESTINAL TRACT: There is diverticulosis of the colon. The small and large bowel are otherwise unremarkable. The appendix is unremarkable. ABDOMINAL WALL: No significant hernia is appreciated. LYMPH NODES: Small retroperitoneal lymph nodes. No enlarged lymph nodes. No ascites. VASCULAR: Atherosclerotic disease. No aneurysm. PELVIC VISCERA: The prostate gland is enlarged measuring 4.6 x 6.2 cm AP and transverse dimension and protrudes into the base. OSSEUS STRUCTURES: Degenerative changes of the spine and mild scoliosis. CT/CT urogram IMPRESSION: Mild right hydronephrosis, proximal ureteral dilatation and delayed right nephrogram. There is abnormal wall thickening of the central right renal collecting system involving the infundibuli, right renal pelvis and right proximal ureter. 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 No excreted contrast in the right renal pelvis or ureter. Normal left kidney. Enlarged prostate gland that protrudes into the base of the bladder. Diverticulosis of the colon. 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 Renal function is improved. He does not need an urgent stent. Discussed with patient will further manage as an outpatient. Time Spent With Patient Time: Total time managing care of this patient today ____ minutes. Progress Note: Quality Stroke Does the patient have a stroke diagnosis?: No
[2023-06-01 19:25] VITALS: BP 162/72; PULSE 72; RESP 18; TEMP 37.1; O2SAT 96
[2023-06-01 20:49] LABS: Glucose, Whole Blood 153 mg/dL (60-115)
[2023-06-01 23:18] VITALS: BP 120/61; PULSE 72; RESP 18; TEMP 37.2; O2SAT 94
[2023-06-02 03:33] VITALS: BP 123/59; PULSE 76; RESP 19; TEMP 36.9; O2SAT 94
[2023-06-02 07:31] VITALS: BP 150/72; PULSE 80; RESP 18; TEMP 37.1; O2SAT 94
[2023-06-02 07:52] LABS: Glucose, Whole Blood 157 mg/dL (60-115)
[2023-06-02] MEDS: Tamsulosin HCL 0.4 MG CAPSULE PO (08:26)
[2023-06-02] MEDS: Insulin Lispro 100 UNIT/ML 3 ML VIAL SUBCUT ×2 (08:26→12:31)
[2023-06-02] MEDS: 0.9 % Sodium Chloride 1,000 ML 80 ML IVCONT (08:26)
[2023-06-02] MEDS: 0.9 % Sodium Chloride Flush 3 ML SYRINGE IVFLUSH (08:27)
[2023-06-02 08:56] LABS: Anion Gap 12 (12-20); Blood Urea Nitrogen 14 mg/dL (9-16); Carbon Dioxide 22 mmol/L (22-29); Chloride 111 mmol/L (96-108); Creatinine Clr Calc Pharmacy 57.3; Estimated Glomerular Filt Rate 59; Glucose Random 154 mg/dL (60-115); Potassium 3.9 mmol/L (3.3-5.1); Sodium 141 mmol/L (135-145)
[2023-06-02 11:24] VITALS: BP 166/70; PULSE 71; RESP 18; TEMP 36.6; O2SAT 94
[2023-06-02 11:41] LABS: Glucose, Whole Blood 211 mg/dL (60-115)
--- NOTE | 2023-06-02 12:22 | P.PNIM_ITS ---
Subjective Subjective Date of Service: 06/02/23 Interval History: rhabdomylysis ,tash Review of Systems tash seems improving no fever or chills or abd pain Physical Exam 2 Vital Signs: Vital Signs: Last Vital Signs Temp 97.8 F 06/02/23 11:24 Pulse 71 06/02/23 11:24 Resp 18 06/02/23 11:24 BP 166/70 H 06/02/23 11:24 Pulse Ox 94 06/02/23 11:24 O2 Del Method Room Air 06/02/23 11:24 BMI result Body Mass Index 26.9 Appearance: Alert.? Oriented X3, feels comfortable .? generalised weak. cvs: rrr, [id number] . res: clear to auscultation ,no rhonchii or wheezing abd: no rebound or guarding ,nt, bs present. ext pulses present , no cyanosis . neuro: moves all ext Objective Data Active Medications Acetaminophen (Acetaminophen 325 Mg Tablet) 650 mg PO Q6H PRN PRN Reason: Pain, Mild (Pain Scale 1-3) Last Admin: 05/30/23 20:41 Dose: 650 mg Documented By: CHRISTOPHER Benzonatate (Benzonatate 100 Mg Capsule) 100 mg PO TID PRN PRN Reason: Cough Dextrose (Dextrose 50 % 25 Gm/50 Ml Syringe) 25 gm IVPUSH Q15M PRN; Protocol PRN Reason: per Hypoglycemia Standing Ord. Docusate Sodium (Docusate Sodium 100 Mg Capsule) 100 mg PO DAILY PRN PRN Reason: Constipation Glucose (Glucose Gel 15 Gm Gel..Gram.) 15 gm PO Q15M PRN; Protocol PRN Reason: per Hypoglycemia Standing Ord. Ceftriaxone Sodium 1 gm/ (Sodium Chloride) 50 mls @ 100 mls/hr IV Q24H [facility] Last Infusion: 06/01/23 21:03 Dose: Infused Documented By: SEAN Sodium Chloride (Ns) 1,000 mls @ 80 mls/hr IVCONT .[id number] [facility] Last Admin: 06/02/23 08:26 Dose: 80 mls/hr Documented By: FRANCOIS Insulin Human Lispro (Insulin Lispro 100 Unit/Ml 3 Ml Vial) 0 unit SUBCUT QIDACHS [facility]; Protocol Last Admin: 06/02/23 08:26 Dose: 2 unit Documented By: FRANCOIS Melatonin (Melatonin 3 Mg Tablet) 6 mg PO BEDTIME PRN PRN Reason: Insomnia Ondansetron HCl (Ondansetron Hcl 4 Mg/2 Ml Vial) 4 mg IVPUSH Q8H PRN PRN Reason: Nausea and Vomiting Sodium Chloride (0.9 % Sodium Chloride Flush 3 Ml Syringe) 3 ml IVFLUSH QSHIFT [facility] Last Admin: 06/02/23 08:27 Dose: 3 ml Documented By: FRANCOIS Tamsulosin HCl (Tamsulosin Hcl 0.4 Mg Capsule) 0.4 mg PO DAILY [facility] Last Admin: 06/02/23 08:26 Dose: 0.4 mg Documented By: FRANCOIS Labs 05/30/23 06:21 06/02/23 08:25 Labs: Laboratory Results - last 24 hr 06/01/23 06/01/23 06/02/23 16:11 20:44 07:29 Hold Purple Top Anion Gap Estim Creat Clear Calc Estimated GFR POC Glucose 116 H 153 H 157 H Random Glucose Calcium 06/02/23 06/02/23 08:25 11:27 Hold Purple Top SEE NOTE Anion Gap 12 Estim Creat Clear Calc 57.3 Estimated GFR 59 POC Glucose 211 H Random Glucose 154 H Calcium 9.0 Microbiology Microbiology Results: Microbiology 05/29/23 17:28 Urine Culture - Final Urine Catheterized - Straight Catheter Enterococcus faecalis Assessment and Plan (1) Hydronephrosis, right: Status: Acute Assessment and Plan: 73-year-old male with a PMH significant for HLD, non-insulin dependent diabetes type 2, and chronic lower back pain who presents to the ED for evaluation after fall at home with a prolonged down time yesterday. Pt was treated with IVF. Pt will be admitted to the hospital for treatment further evaluation of rhabdomyolysis, TASH, and generalized weakness in the setting of COVID infection. Rhabdomyolysis,s/p fall( Likely secondary to generalized weakness in the setting of COVID infection) CPK [id number] continue ivf ,encouraged for po inatke/hydration TASH-Likely multifactorial ( secondary to rhabdo, dehydration,obstructive uropathy). Creatinine improving from 1.53 to 1.25-1.22 renal us-? right sided hydroureter ct urogram : Mild right hydronephrosis, proximal ureteral dilatation and delayed right nephrogram. There is abnormal wall thickening of the central right renal collecting system involving the infundibuli, right renal pelvis and right proximal ureter. 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 No excreted contrast in the right renal pelvis or ureter. Normal left kidney. Enlarged prostate gland that protrudes into the base of the bladder. Diverticulosis of the colon. continue flomax ,moniter pvr. urology d/w ct urogram with patient and his son ( see addendum 06/01 )-patient's son Danilo, the results of the Ct urogram and the plan for further outpatient management with cystoscopy, right ureteroscopy to visualize renal pelvis with possible biopsy. He is agreeable to come to office visit with his father. possible uti: urine culture grew enteroccocus faecalis added augmentin ID eval. COVID infection Pt largely asymptomatic, not hypoxic, in no respiratory distress Non insulin dependent diabetes type 2 Hold metformin fs with sliding scale insulin Diabetic diet HLD hold simvastatin for now d/t rhabdo Pt with reported allergy to atorvastatin Generalised weakness: Pt eval-str. Full Code DVT Prophylaxis: Heparin ongoing hospitalization need : need rehab placement, Alao awiating Id eval for enteroccus faecalis uti. Quality Stroke Does the patient have a stroke diagnosis?: No VTE Prior VTE?: No VTE Risk Level:: Medical - moderate - high VTE Device Contraindication: Treatment Not Indicated VTE Drug Contraindication: N/A - Med Ordered
--- NOTE | 2023-06-02 15:10 | P.DS_ITS ---
DS: Providers Provider Date of Service: 06/02/23 Date of admission: 05/28/23 16:05 Date of discharge: 06/02/23 Primary care physician: Kaushik Frost MD Consults: 05/29/23 08:22 Consult to Nephrology Routine Consulting Provider: [facility] Reason for consultation: tash 05/29/23 16:35 Consult to Urology Routine Consulting Provider: Elle Hernandez Reason for consultation: tash ,hydroureter Has provider been notified: No 06/02/23 14:43 Consult to Infectious Diseases Routine Consulting Provider: [facility] Reason for consultation: enetrococall uti Has provider been notified: No Attending physician on discharge: Timothy Roach Discharging clinician: Timothy Roach DS: Diagnosis Discharge Diagnosis (1) Hydronephrosis, right: Status: Acute DS: Summary Hospital Course Hospital Course: 73-year-old male with a PMH significant for HLD, non-insulin dependent diabetes type 2, and chronic lower back pain who presents to the ED for evaluation after fall at home with a prolonged down time yesterday. Pt lives by himself with some support from family. Son is at beside who supplements HPI. Pt is alert and oriented x4 and answering appropriately, but lacks some details about his fall. Apparently patient was alone for much of the day yesterday, and found by family when they brought over dinner. Patient likely fell sometime during the morning and is estimated to have been the floor for at least 6-7 hours. Patient's phone was not within reach and he lactose strength to get up or even pull himself into a sitting position. Patient remembers the incident and denies lightheadedness or dizziness, tripping over anything, or loss of consciousness, but is unsure of exactly when he fell. Patient reports a long history of chronic lower back pain and said that his legs felt weak. 911 and the EMT was called to evaluate patient, who declined to come in to the ED at that time for evaluation. Pt apparently fell again a second time later that night and son was worried about delayed response to questions, so pt was brought in to the ED this morning for further evaluation. The patient himself complains of chronic lower back pain, around baseline. Denies pain anywhere else. No musculoskeletal or joint pain. Denies headache or acute vision changes. Denies chest pain/pressure, palpitations. Pt a lifelong smoker of around a pack a day, though no shortness of breath or cough. Denies fever or chills. Son notes pt has had noticeable physical decline over the past couple of months. In the ED pt was afebrile but slightly hypertensive up to 145/64. Vitals otherwise stable, WNL. Labs were significant for testing positive for COVID, creatinine 1.53, AST 60, and CPK 2463. No electrolyte abnormalities. No leukocytosis. Stable H&H. CT?of head showed no intracranial hemorrhage or other acute intracranial pathology, but did show patchy hypoattenuation suggestive of microangiopathy. CT of cervical spine found no acute fracture or traumatic subluxations, though did find chronic degenerative disc disease, severe at C6 through C7 with mild to moderate spinal canal stenosis. EKG demonstrated unusual P axis with possible ectopic atrial rhythm with no evidence of ST elevations or depressions. Pt was treated with IVF. Pt will be admitted to the hospital for treatment further evaluation of rhabdomyolysis, TASH, and generalized weakness in the setting of COVID infection. 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 He is agreeable to come to office visit with his father. rhabdomylysis -given hydration,seems cpk improving . tash -seems improved with hydration . moniter renal function/electrolytes outaptient . covid: asymptomatic, advise self isolation for 2 days. Possible UTI: Complete the course of Augmentin 875 mg p.o. b.i.d. for 7 days. plan: Complete the course of Augmentin 875 mg p.o. b.i.d. for 7 days. continue flomax, follow up with dr Sims's office -plan for further outpatient management with cystoscopy, right ureteroscopy to visualize renal pelvis with possible biopsy. moniter renal function and electrolytes on 1 week. assessment and plan coodination time spent 50 min,d/w patient and his son in detail-they are aggreement with above plan. Time Attestation Discharge coordination time: Greater than 30 minutes Quality: Safe Use of Opioids Does Pt have an Active Cancer Diagnosis on the Problem List?: No Quality: Stroke Does the patient have a stroke diagnosis?: No Physical Exam Vital Signs: Vital Signs: Last Vital Signs Temp 97.8 F 06/02/23 11:24 Pulse 71 06/02/23 11:24 Resp 18 06/02/23 11:24 BP 166/70 H 06/02/23 11:24 Pulse Ox 94 06/02/23 11:24 O2 Del Method Room Air 06/02/23 11:24 BMI result Body Mass Index 26.9 Appearance: Alert.? Oriented X3, feels comfortable .? generalised weak. cvs: rrr, [id number] . res: clear to auscultation ,no rhonchii or wheezing abd: no rebound or guarding ,nt, bs present. ext pulses present , no cyanosis . neuro: moves all ext DS: Data Data Completed and Pending Labs on day of discharge: Laboratory Results - last 24 hr 06/01/23 06/01/23 06/02/23 16:11 20:44 07:29 Hold Purple Top Sodium Potassium Chloride Carbon Dioxide Anion Gap BUN Creatinine Estim Creat Clear Calc Estimated GFR POC Glucose 116 H 153 H 157 H Random Glucose Calcium 06/02/23 06/02/23 08:25 11:27 Hold Purple Top SEE NOTE Sodium 141 Potassium 3.9 Chloride 111 H Carbon Dioxide 22 Anion Gap 12 BUN 14 Creatinine 1.22 Estim Creat Clear Calc 57.3 Estimated GFR 59 POC Glucose 211 H Random Glucose 154 H Calcium 9.0 Imaging Chest x-ray: Radiologist's impression: ITS Impressions Cervical Spine CT 05/28/23 13:38 IMPRESSION: * No intracranial hemorrhage or other acute intracranial pathology. 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 * No fracture or traumatic subluxation in the degenerated cervical spine. The degenerative disc disease is severe at C6-C7 and the posterior disc-osteophyte complex at this level causes [id number] spinal canal stenosis. Head CT 05/28/23 13:38 IMPRESSION: * No intracranial hemorrhage or other acute intracranial pathology. 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 * No fracture or traumatic subluxation in the degenerated cervical spine. The degenerative disc disease is severe at C6-C7 and the posterior disc-osteophyte complex at this level causes [id number] spinal canal stenosis. Renal Ultrasound 05/29/23 12:47 IMPRESSION: Comparatively enlarged right kidney with complex appearing right hydronephrosis and proximal hydroureter. It is unclear whether complex material is related to blood products, infected material/pus or combination thereof. Proximal right ureteral mass not entirely excluded. Urgent CT urogram recommended. At the time of this dictation, PSA service contacted to inform referring physician of findings and recommendations. Urogram CT 06/01/23 15:31 IMPRESSION: Mild right hydronephrosis, proximal ureteral dilatation and delayed right nephrogram. There is abnormal wall thickening of the central right renal collecting system involving the infundibuli, right renal pelvis and right proximal ureter. 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 No excreted contrast in the right renal pelvis or ureter. Normal left kidney. Enlarged prostate gland that protrudes into the base of the bladder. Diverticulosis of the colon. Discharge Plan Discharge Anticipated Discharge Date/Time: 06/01/23 12:56 Patient Disposition: [facility] Discharge Diagnosis: tash ,covid, rhabomylysis , right hydroureter [facility] - 1 Week Elle Hernandez MD [Physician] - 1 Week Kaushik Frost MD [Primary Care Provider] - 1 Week Discharge Medications: New tamsulosin 0.4 mg Capsule 0.4 mg PO DAILY Qty: 1 0RF amoxicillin-pot clavulanate 875-125 mg Tablet 1 tab PO Q12H Qty: 13 0RF Continued metformin 500 mg tablet 1,000 mg PO BID Held simvastatin 40 mg tablet 40 mg PO BEDTIME Hold Instructions: Resume on 07/07/23. Discharge Orders: Discharge Order (Routine); Ordered 06/02/23 Ordered By: Timothy Roach Diet: Advance to usual diet Activity on Discharge: As tolerated Stand Alone Forms: Patient Portal Discharge page Care Plan Goals: right hydroureter-s/p ct urogram:urology discussed with patient's son Danilo, the results of the Ct urogram and the plan for further outpatient management with cystoscopy, right ureteroscopy to visualize renal pelvis with possible biopsy. He is agreeable to come to office visit with his father. rhabdomylysis -given hydration,seems cpk improving . tash -seems improved with hydration . moniter renal function/electrolytes outaptient . covid: asymptomatic, advise self isolation for 2 days. Possible UTI: Complete the course of Augmentin 875 mg p.o. b.i.d. for 7 days. Health Concerns: As above. Plan of Treatment: As above. Assessment: As above.
--- NOTE | 2023-06-02 15:21 | MHC.CM.PN ---
Second IMM 06/02/23, Pt has been medically cleared for DC, he will go to [facility] at [facility], via ambulance. His son Danilo has been informed.
[2023-06-02] MEDS: Amoxicillin/Potassium Clav 875 MG TABLET PO (15:48)
[2023-06-02 16:36] LABS: Glucose, Whole Blood 126 mg/dL (60-115)
--- NOTE | 2023-06-02 16:57 | PC.NURSE ---
report given to Miki CORMIER RN at [id number].
== END 2023-06-02 17:51 | disposition skilled nursing facility (03) | DRG 686 ==
LOC: HO.ED 15:07 → HO.EDOVER 16:20 → HO.IMC 05-29 16:45
PROVIDERS: Admitting Provider Student in an Organized Health Care Education/Training Program; Emergency Provider Emergency Medicine; PCP Internal Medicine; Visit Provider Internal Medicine
DX: C65.1 Malignant neoplasm of right renal pelvis (principal); U07.1 COVID-19; M62.82 Rhabdomyolysis; N17.9 Acute kidney failure, unspecified; N13.6 Pyonephrosis; N13.8 Other obstructive and reflux uropathy; M54.59 Other low back pain; N40.1 Benign prostatic hyperplasia with lower urinary tract symptoms; G89.29 Other chronic pain; E11.9 Type 2 diabetes mellitus without complications; E78.5 Hyperlipidemia, unspecified; E86.0 Dehydration; Z79.84 Long term (current) use of oral hypoglycemic drugs; Z79.899 Other long term (current) drug therapy
CPT/HCPCS: 36415; 70450; 72125; 74178; 76775; 80048; 80076; 81001; 82550; 82947; 83690; 83735; 84484; 85025; 85027; 87086; 87088; 87186; 87635; 93005; 97162; 97530; 99285; J0696; J1644; Q9967

== ENCOUNTER → 2023-05-28 13:17 | Outpatient (BNV) | payer MEDICARE, SELFPAY | PROVIDERS: Admitting Provider Student in an Organized Health Care Education/Training Program; Emergency Provider Emergency Medicine; PCP Internal Medicine; Visit Provider Internal Medicine Cardiovascular Disease | DX: R94.31 Abnormal electrocardiogram [ECG] [EKG] (principal) | CPT/HCPCS: 93010 ==

== ENCOUNTER → 2023-05-28 16:05 | Outpatient (BNV) | payer MEDICARE, SELFPAY | PROVIDERS: Admitting Provider Student in an Organized Health Care Education/Training Program; Emergency Provider Emergency Medicine; PCP Internal Medicine; Visit Provider Student in an Organized Health Care Education/Training Program | DX: N13.30 Unspecified hydronephrosis (principal); M62.82 Rhabdomyolysis; N17.9 Acute kidney failure, unspecified | CPT/HCPCS: 99223; 99231; 99232; 99239 ==

== ENCOUNTER → 2023-05-28 16:05 | Outpatient (BNV) | payer MEDICARE, SELFPAY | PROVIDERS: Admitting Provider Student in an Organized Health Care Education/Training Program; Emergency Provider Emergency Medicine; PCP Internal Medicine; Visit Provider Internal Medicine Nephrology | DX: N17.9 Acute kidney failure, unspecified (principal); M62.82 Rhabdomyolysis; U07.1 COVID-19 | CPT/HCPCS: 99223 ==

== ENCOUNTER → 2023-05-28 16:05 | Outpatient (BNV) | payer MEDICARE, SELFPAY | PROVIDERS: Admitting Provider Student in an Organized Health Care Education/Training Program; Emergency Provider Emergency Medicine; PCP Internal Medicine; Visit Provider Urology | DX: N28.9 Disorder of kidney and ureter, unspecified (principal); N39.9 Disorder of urinary system, unspecified; N13.30 Unspecified hydronephrosis; Z87.898 Personal history of other specified conditions | CPT/HCPCS: 99222; 99232 ==

== ENCOUNTER → 2025-05-01 19:07 | Outpatient (BNV) | payer MEDICARE, SELFPAY | PROVIDERS: Emergency Provider Emergency Medicine; PCP Internal Medicine; Visit Provider Radiology Diagnostic Radiology | DX: R26.2 Difficulty in walking, not elsewhere classified (principal); R07.89 Other chest pain | CPT/HCPCS: 70450; 71045 ==

== ENCOUNTER → 2025-05-01 19:29 | Outpatient (BNV) | payer MEDICARE, SELFPAY | PROVIDERS: Admitting Provider Family Medicine; Emergency Provider Emergency Medicine; Visit Provider Internal Medicine | DX: I45.10 Unspecified right bundle-branch block (principal); I25.2 Old myocardial infarction | CPT/HCPCS: 93010 ==

== ENCOUNTER → 2025-05-01 21:29 | Outpatient (BNV) | payer MEDICARE, SELFPAY | PROVIDERS: Emergency Provider Emergency Medicine; Visit Provider Family Medicine | DX: N17.9 Acute kidney failure, unspecified (principal); N13.9 Obstructive and reflux uropathy, unspecified | CPT/HCPCS: 99233 ==

== ENCOUNTER → 2025-05-02 00:12 | Outpatient (BNV) | payer MEDICARE, SELFPAY | PROVIDERS: Emergency Provider Emergency Medicine; Visit Provider Student in an Organized Health Care Education/Training Program | DX: R22.41 Localized swelling, mass and lump, right lower limb (principal) | CPT/HCPCS: 93970 ==

== ENCOUNTER 2025-05-02 07:31 | Outpatient (BNV) | payer MEDICARE, SELFPAY | END 2025-05-02 12:00 | PROVIDERS: Admitting Provider Family Medicine; Emergency Provider Emergency Medicine; Visit Provider Internal Medicine | DX: I26.92 Saddle embolus of pulmonary artery without acute cor pulmonale (principal) | CPT/HCPCS: 93306 ==

== ENCOUNTER → 2025-05-02 07:31 | Outpatient (BNV) | payer MEDICARE, SELFPAY | PROVIDERS: Admitting Provider Family Medicine; Emergency Provider Emergency Medicine; Visit Provider Internal Medicine | DX: D64.9 Anemia, unspecified (principal); I26.99 Other pulmonary embolism without acute cor pulmonale; N17.9 Acute kidney failure, unspecified; N13.30 Unspecified hydronephrosis; I82.220 Acute embolism and thrombosis of inferior vena cava | CPT/HCPCS: 99223 ==

== ENCOUNTER → 2025-05-02 07:31 | Outpatient (BNV) | payer MEDICARE, SELFPAY | PROVIDERS: Admitting Provider Family Medicine; Emergency Provider Emergency Medicine; Visit Provider Surgery Vascular Surgery | DX: I26.99 Other pulmonary embolism without acute cor pulmonale (principal) | CPT/HCPCS: 99222 ==

== ENCOUNTER → 2025-05-02 07:31 | Outpatient (BNV) | payer MEDICARE, SELFPAY | PROVIDERS: Admitting Provider Family Medicine; Emergency Provider Emergency Medicine; Visit Provider Urology | DX: I26.92 Saddle embolus of pulmonary artery without acute cor pulmonale (principal); N13.30 Unspecified hydronephrosis; N28.9 Disorder of kidney and ureter, unspecified; N39.9 Disorder of urinary system, unspecified | CPT/HCPCS: 99223 ==

== ENCOUNTER → 2025-05-02 07:31 | Outpatient (BNV) | payer MEDICARE, SELFPAY | PROVIDERS: Admitting Provider Family Medicine; Emergency Provider Emergency Medicine; Visit Provider Internal Medicine | DX: I26.92 Saddle embolus of pulmonary artery without acute cor pulmonale (principal); I82.220 Acute embolism and thrombosis of inferior vena cava; I82.3 Embolism and thrombosis of renal vein; D72.829 Elevated white blood cell count, unspecified; D51.0 Vitamin B12 deficiency anemia due to intrinsic factor deficiency | CPT/HCPCS: 99222 ==